=== PATIENT | female | born 1935 | race Hispanic/Latino ===

== ENCOUNTER 2016-08-15 17:55 | Inpatient (IN) | payer MEDICARE, MEDICAID ==
[~2016-08-15] VITALS: Ht 172.7 cm; Wt 90.7 kg
[2016-08-15] MEDS ORDERED: SENNA8.6 M2 PO (18:00)
[2016-08-15] MEDS ORDERED: LANTUS SOL100 UNIT/1 SUBQ ×2 (18:00)
[2016-08-15] MEDS ORDERED: AMLODIPINE BES2.5 MG ORAL (18:00)
[2016-08-15] MEDS ORDERED: SIMVASTATIN5 MG ORAL (18:00)
[2016-08-15] MEDS ORDERED: OMEPRAZOLE5 GM MC (18:00)
[2016-08-15 18:12] VITALS: BP 129/97
[2016-08-15] MEDS ORDERED: Morphine Sulfate 4mg/ml Inj IVP ONE (18:15)
--- NOTE | 2016-08-15 18:31 | Emergency Room Report ---
History of Present Illness General Chief Complaint: Multiple Trauma/Fall Source: Patient, EMS Present Illness HPI 81 YO F BIBEMS with allegedly ground level slip and fall "on tile" at home. C/o pain to lower right extremity. Unable to ambulate. Denies ankle/foot, hip, thigh, pelvis pain. Denies hitting head, other injury. EMS notes obvious deformity to right lower extremity, placed in air cast before transport. Allergies: Coded Allergies: No Known Allergies (Unverified , 06/20/13) Patient History Past Medical History: DM Past Surgical History: none Pertinent Family History: none Social History: Denies: alcohol use, drug use, smoking Now: No Reviewed Nursing Documentation: PMH: Agreed, PSxH: Agreed Nursing Documentation-PMH Hx Cardiac Problems: Yes - angiogram Hx Hypertension: Yes Hx COPD: Yes - PNA Hx Diabetes: Yes Hx Cancer: No Hx Gastrointestinal Problems: No Hx Neurological Problems: No Review of Systems All Other Systems: negative except mentioned in HPI Physical Exam Vital Signs Date Time Temp Pulse Resp B/P Pulse Ox O2 Delivery O2 Flow Rate FiO2 08/15/16 17:53 97.9 108 20 139/61 96 Room Air Sp02 EP Interpretation: reviewed, normal General Appearance: normal inspection, well appearing, no apparent distress, alert, GCS 15, non-toxic, obese Head: normocephalic, atraumatic Eyes: bilateral eye EOMI, bilateral eye PERRL ENT: normal ENT inspection, hearing grossly normal, normal voice Neck: normal inspection, full range of motion, supple, no bony tend Respiratory: normal inspection, lungs clear, normal breath sounds, no respiratory distress, no retraction, no wheezing Cardiovascular #1: regular rate, rhythm, no edema Gastrointestinal: normal inspection, normal bowel sounds, non tender, soft, no guarding, no hernia Genitourinary: no CVA tenderness Musculoskeletal: other - Right lower extremity: abrasion to lower mid tibia, obvious crepitus palpable and obvious deformity visualized. No open laceration. Able to move right ankle. No ttp to right knee, prox tib/fib or foot/ankle. Neurologic: normal inspection, alert, oriented x3, responsive, senior strategy analyst III-XII nml as tested, motor strength/tone normal, speech normal Psychiatric: normal inspection, judgement/insight normal, mood/affect normal Skin: normal inspection, normal color, no rash Medical Decision Making Diagnostic Impression: Primary Impression: Fall Qualified Codes: W19.XXXA - Unspecified fall, initial encounter Additional Impressions: Multiple injuries due to trauma Closed right tibial fracture Qualified Codes: S82.201A - Unspecified fracture of shaft of right tibia, initial encounter for closed fracture Closed right fibular fracture Qualified Codes: S82.831A - Other fracture of upper and lower end of right fibula, initial encounter for closed fracture ER Course 81 YO Fwith right tibia and right fibula closed fractures s/p attempted reduction and splinting in ED. VSS. Afebrile. Labs: Mild leuks. Mild Hyper K. Stable CKD CXR negative for acute PNA ECG Atrial Fib, no RVR Endorsed to Dr Gee at 833pm for med/surg admission EKG Diagnostic Results Rate: other - Atrial fib Rhythm: other ST Segments: no acute changes Rhythm Strip Diag. Results EP Interpretation: yes Rate: 91 Rhythm: no PVC's, no ectopy Chest X-Ray Diagnostic Results EP Interpretation: Yes Findings: no consolidation, no effusion, no pneumothorax, no acute cardiopulmonary disease Number of Views: 1 Other X-Ray Diagnostic Results Other X-Ray Diagnostic Results : X-Ray Ordered: Right tib fib EP Interpretation: Yes Findings: other - Right distal tibia fx, right distal fibula fx Number of Views: 2 Other Impression Right tib fib S/p reduction 2 views ED review Improved lineup of fx fragments s/p reduction Right ankle 3 views ED review no fx, dislocation or soft tissue swelling Reevaluation Time: 20:34 Last Vital Signs Date Time Temp Pulse Resp B/P Pulse Ox O2 Delivery O2 Flow Rate FiO2 08/15/16 18:12 98.3 102 34 129/97 97 Room Air Status: improved Disposition: ADMITTED INPATIENT Referrals: NON PHYSICIAN (PCP) EDIE CARRIZALES M.D. Aug 15, 2016 18:31
[2016-08-15 18:55] LABS: BASOPHILS % (AUTO) 0.9 % (0.0-2.0); EOSINOPHILS % (AUTO) 3.1 % (0.0-3.0); LYMPHOCYTES % (AUTO) 6.2 % (20.0-45.0); MEAN CORPUSCULAR HEMOGLOBIN 28.4 PG (27.0-31.0); MEAN CORPUSCULAR HGB CONC 30.6 G/DL (32.0-36.0); MEAN CORPUSCULAR VOLUME 93 FL (80-99); MONOCYTES % (AUTO) 7.5 % (1.0-10.0); NEUTROPHILS % (AUTO) 82.3 % (45.0-75.0); PLATELET COUNT 238 K/UL (150-450); RED BLOOD COUNT 4.63 M/UL (4.20-5.40); RED CELL DISTRIBUTION WIDTH 15.6 % (11.6-14.8); WHITE BLOOD COUNT 11.3 K/UL (4.8-10.8)
[2016-08-15 19:03] LABS: PROTHROMBIN TIME 10.3 SEC (9.30-11.50)
[2016-08-15 19:09] LABS: ALANINE AMINOTRANSFERASE 17 U/L (3-33); ALBUMIN/GLOBULIN RATIO 0.8 (1.0-2.7); ANION GAP 10 (5-15); ASPARTATE AMINO TRANSFERASE 19 U/L (5-40); CALCIUM 9.4 mg/dL (8.6-10.2); CARBON DIOXIDE 33 mEQ/L (20-30); CHLORIDE 100 mEQ/L (98-107); CREATININE 1.2 mg/dL (0.5-0.9); HEMOLYSIS 2; SODIUM 143 mEQ/L (135-145); TOTAL PROTEIN 7.2 g/dL (6.6-8.7)
[2016-08-15] MEDS ORDERED: Lidocaine 1% Plain 30 ml INJ ONE (19:15)
[2016-08-15 20:26] VITALS: BP 128/79
[2016-08-15 21:47] VITALS: BP 129/80
[2016-08-15] MEDS ORDERED: Morphine Sulfate 2mg/ml Inj IVP PRN (23:15)
[2016-08-15] MEDS ORDERED: Miralax 17gm pkt ORAL PRN (23:15)
[2016-08-15] MEDS ORDERED: LORazepam Inj 2mg/ml 1ml IV PRN (23:15)
[2016-08-15] MEDS ORDERED: Zolpidem 5mg tab ORAL PRN (23:15)
[2016-08-15] MEDS ORDERED: Mylanta II UD 30ml ORAL PRN (23:15)
--- NOTE | 2016-08-15 23:45 | History and Physical ---
History of Present Illness General Date patient seen: Aug 15, 2016 Reason for Hospitalization: Multiple Trauma/Fall Present Illness HPI 81 YO female with pmhx DM II BIBA after patient apparently suffered a ground level mechanical slip and fall "on tile" at home. Patient has a c/o pain to lower right extremities. Patient says she is unable to ambulate now as a result of the fall. Patient denies any loss of conciousness, denies shortness of breath or chest pain leading to or preceeding the event of her fall. Patient admits the floor looked a little slippery and she wasn't able to prevent a mechanical slip and fall while walking. No other complaint of fever or chills, no headache or seizure reported. Patient is being admitted for evaluation of her lower extremity pains and inability to ambulate. Allergies: Coded Allergies: No Known Allergies (Unverified , 06/20/13) Medication History Scheduled Celecoxib* (Celebrex*), 200 MG ORAL DAILY, (Reported) Docusate Sodium* (Docusate Sodium*), 100 MG ORAL THREE TIMES A DAY, (Reported) Enoxaparin* (Lovenox*), 30 MG SUBQ EVERY 12 HOURS, (Reported) Ertapenem Sodium* (INVanz*), 1 GM IVPB Q24H, (Reported) Hydrocodone/Acetaminophen 5-325* (Hydrocodone/Acetaminophen 5-325*), 1 TAB ORAL Q4H, (Reported) Metoprolol Tartrate* (Metoprolol Tartrate*), 37.5 MG ORAL EVERY 12 HOURS, ( Reported) Vancomycin Hcl/D5w (Vancomycin-D5w 1 G/250 Ml), 1 GM IVPB Q24H, (Reported) Vitamin A & D (Vitamin A & D Ointment), 1 APPLIC TOPIC Q12HR, (Reported) Scheduled PRN Acetaminophen (Acetaminophen), 325 MG PO Q6HR PRN for Mild Pain/Temp > 100.5, ( Reported) Al Hydroxide/mg Hydroxide (Mag-Al Plus Suspension), 30 ML PO Q6HR PRN for DYSPEPSIA, (Reported) Hydromorphone HCl (Hydromorphone HCl), 1 MG SUBQ Q3HR PRN for Moderate Pain ( Pain Scale 4-6), (Reported) Hydromorphone HCl (Hydromorphone HCl), 0.5 MG SUBQ Q4HR PRN for Mild Pain (Pain Scale 1-3), (Reported) Lorazepam* (Lorazepam*), 0.5 MG IV Q4H PRN for For Anxiety, (Reported) Ondansetron* (Zofran*), 4 MG IV Q6H PRN for Nausea & Vomiting, (Reported) Polyethylene Glycol 3350* (Miralax*), 17 GM ORAL HS PRN for Constipation, ( Reported) Zolpidem Tartrate* (Zolpidem Tartrate*), 5 MG ORAL BEDTIME PRN for Insomnia, ( Reported) Miscellaneous Medications Insulin Aspart (Novolog), 100 UNIT SQ, (Reported) Patient History Healthcare decision maker Resuscitation status Full Code Advanced Directive on File Past Medical/Surgical History Past Medical/Surgical History: (1) Leukocytosis (2) Altered mental status (3) Diabetes mellitus (4) Cellulitis (5) Multiple falls (6) recurrent hypoglycemia (7) Afib (8) UTI (urinary tract infection) Review of Systems Constitutional: Reports: weakness Musculoskeletal: Reports: back pain, joint pain, joint swelling, muscle pain, muscle stiffness Skin: Reports: lesions, rash Physical Exam General Appearance: no apparent distress Lines, tubes and drains: peripheral HEENT: normocephalic, atraumatic, anicteric, PERRL Neck: non-tender, normal alignment, supple Respiratory/Chest: chest wall non-tender, lungs clear, decreased breath sounds Cardiovascular/Chest: normal peripheral pulses, normal rate, regular rhythm, no JVD Abdomen: normal bowel sounds, non tender, soft, no organomegaly Genitourinary/Rectal: normal genital exam, normal rectal exam Extremities: calf tenderness, inflammation, slow capillary refill, trace edema , other - #1 Left Lower Leg Cellulitis with Dry, Scaly skin. Skin Exam: palled, rash Neurologic: product management internship II-XII grossly normal, no motor/sensory deficits Last 24 Hour Vital Signs Date Time Temp Pulse Resp B/P Pulse Ox O2 Delivery O2 Flow Rate FiO2 08/15/16 21:47 97.0 98 18 129/80 92 Nasal Cannula 2.0 08/15/16 20:43 98.3 97 20 128/79 99 Nasal Cannula 2.0 08/15/16 20:26 98.3 97 20 128/79 99 Nasal Cannula 2.0 08/15/16 19:04 98.3 08/15/16 18:12 98.3 102 34 129/97 97 Room Air 08/15/16 17:53 97.9 108 20 139/61 96 Room Air Laboratory Tests Test 08/15/16 18:36 White Blood Count 11.3 K/UL (4.8-10.8) H Red Blood Count 4.63 M/UL (4.20-5.40) Hemoglobin 13.2 G/DL (12.0-16.0) Hematocrit 43.0 % (37.0-47.0) Mean Corpuscular Volume 93 FL (80-99) Mean Corpuscular Hemoglobin 28.4 PG (27.0-31.0) Mean Corpuscular Hemoglobin Concent 30.6 G/DL (32.0-36.0) L Red Cell Distribution Width 15.6 % (11.6-14.8) H Platelet Count 238 K/UL (150-450) Mean Platelet Volume 8.0 FL (6.5-10.1) Neutrophils (%) (Auto) 82.3 % (45.0-75.0) H Lymphocytes (%) (Auto) 6.2 % (20.0-45.0) L Monocytes (%) (Auto) 7.5 % (1.0-10.0) Eosinophils (%) (Auto) 3.1 % (0.0-3.0) H Basophils (%) (Auto) 0.9 % (0.0-2.0) Prothrombin Time 10.3 SEC (9.30-11.50) Prothromb Time International Ratio 1.0 (0.9-1.1) Activated Partial Thromboplast Time 25 SEC (23-33) Sodium Level 143 mEQ/L (135-145) Potassium Level 5.0 mEQ/L (3.4-4.9) H Chloride Level 100 mEQ/L (98-107) Carbon Dioxide Level 33 mEQ/L (20-30) H Anion Gap 10 (5-15) Blood Urea Nitrogen 17 mg/dL (7-23) Creatinine 1.2 mg/dL (0.5-0.9) H Estimat Glomerular Filtration Rate mL/min (>60) Glucose Level 292 mg/dL (74-106) H Calcium Level 9.4 mg/dL (8.6-10.2) Total Bilirubin < 0.2 mg/dL (0.0-1.2) Aspartate Amino Transf (AST/SGOT) 19 U/L (5-40) Alanine Aminotransferase (ALT/SGPT) 17 U/L (3-33) Alkaline Phosphatase 111 U/L (35-104) H Total Protein 7.2 g/dL (6.6-8.7) Albumin 3.4 g/dL (3.5-5.2) L Globulin 3.8 g/dL Albumin/Globulin Ratio 0.8 (1.0-2.7) L Height (Feet): 5 Height (Inches): 8.00 Weight (Pounds): 200 Medications Current Medications Medications (Trade) Dose Ordered Sig/Andreas Route PRN Reason Start Time Stop Time Status Last Admin Dose Admin Acetaminophen (Tylenol) 650 mg Q4H PRN ORAL fever 08/15/16 23:15 09/14/16 23:14 Al Hydroxide/Mg Hydroxide (Mylanta II) 30 ml Q6H PRN ORAL dyspepsia 08/15/16 23:15 09/14/16 23:14 Amlodipine Besylate (Norvasc) 5 mg DAILY ORAL 08/16/16 09:00 09/15/16 08:59 Dextrose (Dextrose 50%) STAT PRN IV Hypoglycemia 08/15/16 23:15 09/14/16 23:14 Heparin Sodium (Porcine) (Heparin 5000 units/ml) 5,000 units EVERY 12 HOURS SUBQ 08/16/16 09:00 09/15/16 08:59 Insulin Aspart BEFORE MEALS AND HS SUBQ 08/16/16 06:30 09/15/16 06:29 Levofloxacin (Levaquin) 50 ml @ 50 mls/hr Q24H IVPB 08/17/16 00:00 08/24/16 00:00 Levofloxacin (Levaquin) 100 ml @ 100 mls/hr NOW ONCE IVPB 08/16/16 00:30 08/16/16 01:29 Lorazepam (Ativan 2mg/ml 1ml) 0.5 mg Q4H PRN IV For Anxiety 08/15/16 23:15 08/22/16 23:14 Morphine Sulfate (Morphine Sulfate) 2 mg Q4H PRN IVP For Pain 4-6 08/15/16 23:15 08/22/16 23:14 Ondansetron HCl (Zofran) 4 mg Q6H PRN IVP Nausea & Vomiting 08/15/16 23:15 09/14/16 23:14 Polyethylene Glycol (Miralax) 17 gm HSPRN PRN ORAL Constipation 08/15/16 23:15 09/14/16 23:14 Sodium Chloride 1,000 ml @ 50 mls/hr Q20H IV 08/16/16 00:00 09/15/16 00:00 Zolpidem Tartrate 5 mg 5 mg HSPRN PRN ORAL Insomnia 08/15/16 23:15 09/14/16 23:14 Assessment/Plan Problem List: (1) Multiple falls ICD Codes: R29.6 - Multiple falls SNOMED: 882047214 (2) Closed right fibular fracture ICD Codes: S82.401A - Unspecified fracture of shaft of right fibula, initial encounter for closed fracture SNOMED: 200524038 Qualifiers: Qualified Codes: S82.831A - Other fracture of upper and lower end of right fibula, initial encounter for closed fracture (3) Closed right tibial fracture ICD Codes: S82.201A - Unspecified fracture of shaft of right tibia, initial encounter for closed fracture SNOMED: 168801580 Qualifiers: Qualified Codes: S82.201A - Unspecified fracture of shaft of right tibia, initial encounter for closed fracture (4) recurrent hypoglycemia (5) Cellulitis (6) Diabetes mellitus Qualifiers: Qualified Codes: E11.8 - Type 2 diabetes mellitus with unspecified complications; Z79.4 - senior living (current) use of insulin Status: progressing Assessment/Plan Broad spectrum for Left Lower Leg Cellulitis and Left Heel pressure ulcer Orthopedic eval for apparent lower extremity fractures Pain management Tight BP and BG control CHRISTY CHESTER Aug 15, 2016 23:45
[2016-08-16] VITALS (7 sets, daily range): BP systolic 109–154; BP diastolic 56–78
[2016-08-16] MEDS: NovoLOG Insulin Flexpen SUBQ SCH ×4 (06:30→21:31)
[2016-08-16 07:58] LABS: ALANINE AMINOTRANSFERASE 14 U/L (3-33); ALBUMIN/GLOBULIN RATIO 0.9 (1.0-2.7); ANION GAP 9 (5-15); ASPARTATE AMINO TRANSFERASE 18 U/L (5-40); CALCIUM 9.1 mg/dL (8.6-10.2); CARBON DIOXIDE 33 mEQ/L (20-30); CHLORIDE 102 mEQ/L (98-107); CREATININE 1.3 mg/dL (0.5-0.9); HEMOLYSIS 4; POTASSIUM 5.2 mEQ/L (3.4-4.9); SODIUM 144 mEQ/L (135-145); TOTAL PROTEIN 6.6 g/dL (6.6-8.7)
[2016-08-16 08:43] LABS: BASOPHILS % (AUTO) 0.6 % (0.0-2.0); EOSINOPHILS % (AUTO) 3.3 % (0.0-3.0); LYMPHOCYTES % (AUTO) 9.7 % (20.0-45.0); MEAN CORPUSCULAR HEMOGLOBIN 27.5 PG (27.0-31.0); MEAN CORPUSCULAR HGB CONC 29.6 G/DL (32.0-36.0); MEAN CORPUSCULAR VOLUME 93 FL (80-99); MEAN PLATELET VOLUME 7.7 FL (6.5-10.1); MONOCYTES % (AUTO) 10.9 % (1.0-10.0); NEUTROPHILS % (AUTO) 75.4 % (45.0-75.0); PLATELET COUNT 249 K/UL (150-450); RED BLOOD COUNT 4.37 M/UL (4.20-5.40); RED CELL DISTRIBUTION WIDTH 14.9 % (11.6-14.8); WHITE BLOOD COUNT 12.3 K/UL (4.8-10.8)
--- NOTE | 2016-08-16 09:09 | Wound Care Consultation ---
Wound Assessment Wound Assessment #1: Wound Number: #1 Wound Present on Admission: Yes New Wound: No Status Change of Wound: No Wound Location Body Site Modif: left, lower Wound Location Body Site: leg Wound Type: other - Cellulitis Nitza Test: Does not Nitza Percent of Wound [place]/Red: 100 Wound Drainage Amount: None Wound Drainage Odor: None/Absent Tissue Surrounding Wound: Erythemic Wound General Appearance: Reddened - warm to touch. Dry, Scaly skin., Open to air Wound Assessment #2: Wound Number: #2 Wound Present on Admission: Yes New Wound: No Status Change of Wound: No Wound Location Body Site Modif: left Wound Location Body Site: heel Wound Type: pressure ulcer Nitza Test: Does not Nitza Pressure Ulcer Stage: deep tissue injury Wound Thickness: Full Thickness Wound Length: 4.0 Wound Width: 4.0 Wound Depth: utd Percent of Wound Purple/Maroon: 100 Wound Drainage Amount: None Wound Drainage Odor: None/Absent Tissue Surrounding Wound: Erythemic Wound General Appearance: Open to air - pt c/o of site being tender. Maroon color present to site. Wound Comment #1 Left Lower Leg Cellulitis with Dry, Scaly skin. #2 Left Heel Pressure Ulcer Deep Tissue Injury. Recommendation -APPLY LOW AIR LOSS OVERLAY FOR WOUND MANAGEMENT. -Turn and reposition. -Local wound care as ordered. -Apply A&D to left lower leg dry, scaly skin as ordered, leave open to air. -Offload heels and feet. -Apply heel protectors. -Avoid shear and friction. -Optimize Nutrition. -Keep clean and dry. -Assess and follow up with MD for any changes of condition. KEENAN DUNNE Aug 16, 2016 09:09
--- NOTE | 2016-08-16 09:10 | Pulmonology Progress Note ---
Assessment/Plan Assessment/Plan ASSESSMENT s/p fall closed R tibia fracture s/p attempted reduction of closed R tibial fracture in ED RLE pain AFib renal insufficiency mild hyperkalemia HTN DM COPD cellulitis LLE possible UTI PLAN OF CARE MS floor s/p reduction X ray after reduction - noted ortho eval appreciated per ortho-unstable fracture, need ORIF with IM nailing cardiac clearance after cardiac eval ECHO in am surgery tentatively planned for Thursday NPO after MN Thursday and hold Heparin evening of Thursday pain management AF stable, change CCB to BB for a better rate control BP management with BB, optimize as needed no anticoagulation 2 to high risk for further falls empiric abx, urine cx wound nurse eval noted Kayexalate x 1 ( low dose) monitor renal parameters, lytes, avoid nephrotoxic BS management with SS of insulin O2 HHN prn DVT prophylaxis bowel regimen case discussed and evaluated by supervising physician Subjective Allergies: Coded Allergies: No Known Allergies (Unverified , 06/20/13) Subjective c/o pain RLE splinted in ED awaiting for ortho eval mild leukocytosis, mild hyperkalemia no CP, no SOB, no dizziness reports slip and fall at home, no LOC, no blackout, BS stable Objective Last 24 Hour Vital Signs Date Time Temp Pulse Resp B/P Pulse Ox O2 Delivery O2 Flow Rate FiO2 08/16/16 08:31 98.8 111 20 127/69 95 Nasal Cannula 2.0 08/16/16 04:53 97.7 108 18 110/74 94 Nasal Cannula 2.0 94 08/16/16 00:02 97.0 96 20 125/75 93 Nasal Cannula 2.0 93 08/15/16 21:47 97.0 98 18 129/80 92 Nasal Cannula 2.0 08/15/16 20:43 98.3 97 20 128/79 99 Nasal Cannula 2.0 08/15/16 20:26 98.3 97 20 128/79 99 Nasal Cannula 2.0 08/15/16 19:04 98.3 08/15/16 18:12 98.3 102 34 129/97 97 Room Air 08/15/16 17:53 97.9 108 20 139/61 96 Room Air Intake and Output 08/15/16 08/16/16 19:00 07:00 Intake Total 350 ml Balance 350 ml Intake IV Total 350 ml # Voids 3 # Bowel Movements 2 General Appearance: no acute distress, other HEENT: normocephalic, atraumatic, anicteric Respiratory/Chest: lungs clear Cardiovascular: normal peripheral pulses, normal rate, regular rhythm, no JVD Abdomen: soft, non tender, non distended Extremities: other - RLE with splint, NV checks intact Skin: other - LLE with erythema, dry scaly skin Neurologic/Psychiatric: abnormal gait, alert, responsive Musculoskeletal: atrophy - BLE Laboratory Tests 08/15/16 18:36: White Blood Count 11.3H, Red Blood Count 4.63, Hemoglobin 13.2, Hematocrit 43.0 , Mean Corpuscular Volume 93, Mean Corpuscular Hemoglobin 28.4, Mean Corpuscular Hemoglobin Concent 30.6L, Red Cell Distribution Width 15.6H, Platelet Count 238, Mean Platelet Volume 8.0, Neutrophils (%) (Auto) 82.3H, Lymphocytes (%) (Auto) 6.2L, Monocytes (%) (Auto) 7.5, Eosinophils (%) (Auto) 3.1H, Basophils (%) (Auto) 0.9, Prothrombin Time 10.3, Prothromb Time International Ratio 1.0, Activated Partial Thromboplast Time 25, Sodium Level 143, Potassium Level 5.0H, Chloride Level 100, Carbon Dioxide Level 33H, Anion Gap 10, Blood Urea Nitrogen 17, Creatinine 1.2H, Estimat Glomerular Filtration Rate , Glucose Level 292H, Calcium Level 9.4, Total Bilirubin < 0.2, Aspartate Amino Transf (AST/SGOT) 19, Alanine Aminotransferase (ALT/SGPT) 17, Alkaline Phosphatase 111H, Total Protein 7.2, Albumin 3.4L, Globulin 3.8, Albumin/ Globulin Ratio 0.8L 08/16/16 05:15: White Blood Count 12.3H, Red Blood Count 4.37, Hemoglobin 12.0, Hematocrit 40.6 , Mean Corpuscular Volume 93, Mean Corpuscular Hemoglobin 27.5, Mean Corpuscular Hemoglobin Concent 29.6L, Red Cell Distribution Width 14.9H, Platelet Count 249, Mean Platelet Volume 7.7, Neutrophils (%) (Auto) 75.4H, Lymphocytes (%) (Auto) 9.7L, Monocytes (%) (Auto) 10.9H, Eosinophils (%) (Auto) 3.3H, Basophils (%) (Auto) 0.6, Sodium Level 144, Potassium Level 5.2H, Chloride Level 102, Carbon Dioxide Level 33H, Anion Gap 9, Blood Urea Nitrogen 16, Creatinine 1.3H, Estimat Glomerular Filtration Rate , Glucose Level 71#L, Calcium Level 9.1, Total Bilirubin 0.2, Aspartate Amino Transf (AST/SGOT) 18, Alanine Aminotransferase (ALT/SGPT) 14, Alkaline Phosphatase 96, Total Protein 6.6, Albumin 3.2L, Globulin 3.4, Albumin/Globulin Ratio 0.9L Current Medications Medications (Trade) Dose Ordered Sig/Andreas Route PRN Reason Start Time Stop Time Status Last Admin Dose Admin Acetaminophen (Tylenol) 650 mg Q4H PRN ORAL fever 08/15/16 23:15 09/14/16 23:14 Al Hydroxide/Mg Hydroxide (Mylanta II) 30 ml Q6H PRN ORAL dyspepsia 08/15/16 23:15 09/14/16 23:14 Amlodipine Besylate (Norvasc) 5 mg DAILY ORAL 08/16/16 09:00 09/15/16 08:59 Dextrose (Dextrose 50%) STAT PRN IV Hypoglycemia 08/15/16 23:15 09/14/16 23:14 Heparin Sodium (Porcine) (Heparin 5000 units/ml) 5,000 units EVERY 12 HOURS SUBQ 08/16/16 09:00 09/15/16 08:59 Insulin Aspart BEFORE MEALS AND HS SUBQ 08/16/16 06:30 09/15/16 06:29 Levofloxacin (Levaquin) 50 ml @ 50 mls/hr Q24H IVPB 08/17/16 00:00 08/24/16 00:00 Lorazepam (Ativan 2mg/ml 1ml) 0.5 mg Q4H PRN IV For Anxiety 08/15/16 23:15 08/22/16 23:14 Morphine Sulfate (Morphine Sulfate) 2 mg Q4H PRN IVP For Pain 4-6 08/15/16 23:15 08/22/16 23:14 Ondansetron HCl (Zofran) 4 mg Q6H PRN IVP Nausea & Vomiting 08/15/16 23:15 09/14/16 23:14 Polyethylene Glycol (Miralax) 17 gm HSPRN PRN ORAL Constipation 08/15/16 23:15 09/14/16 23:14 Sodium Chloride 1,000 ml @ 50 mls/hr Q20H IV 08/16/16 00:00 09/15/16 00:00 08/16/16 00:00 Vitamin A/Vitamin D (A & D Oint) 1 applic EVERY 12 HOURS TOPIC 08/16/16 09:00 09/15/16 08:59 UNV Zolpidem Tartrate (Ambien) 5 mg HSPRN PRN ORAL Insomnia 08/15/16 23:15 09/14/16 23:14 [facility]Debra NP Aug 16, 2016 09:10
[2016-08-16] MEDS ORDERED: Sodium Polystyrene Sulfonate 15gm Powder ORAL ONE (09:15)
--- NOTE | 2016-08-16 09:59 | Diagnostic Imaging Report ---
Indication: Status post reduction of the right leg Technique: XRAY LEG LOWER TIB/FIB 2V RIGHT Comparison: Examination from earlier the same day at 1844 hrs. Findings: There is now a cast obscures underlying osseous detail. There is redemonstration of mildly displaced tibial and distal fibular fractures. There is osteopenia. Impression: Interval placement of a cast. Redemonstration of mildly displaced tibial shaft and distal fibular fractures.
--- NOTE | 2016-08-16 10:00 | Diagnostic Imaging Report ---
Indication: Right leg pain Technique: XRAY LEG LOWER TIB/FIB 2V RIGHT Comparison: None Findings: There is an obliquely oriented fracture of the mid to distal tibial shaft. There is also a fracture of the distal fibula. Fractures are mildly displaced. There is osteopenia. Atherosclerotic changes are present. Degenerative changes of the patellofemoral compartment of the knee are seen. Impression: Acute fractures of the tibia and fibula.
--- NOTE | 2016-08-16 10:04 | Diagnostic Imaging Report ---
Indication: Right ankle pain Technique: XRAY ANKLE MIN 3VWS RIGHT Comparison: None Findings: Obliquely oriented mildly displaced fractures are noted of the mid to distal tibial shaft and distal fibula. There is osteopenia. Impression: Acute fractures of the tibia and fibula.
[2016-08-16] MEDS: Vitamin A&D Oint 2oz Tube TOPIC SCH ×2 (10:53→21:25)
[2016-08-16] MEDS: Heparin 5000 units/ml inj SUBQ SCH ×2 (10:54→21:12)
[2016-08-16] MEDS: DuoNeb 0.5-3(2.5)mg/3ml neb HHN SCH ×4 (12:30→23:11)
[2016-08-16 14:55] LABS: APPEARANCE,URINE SLIGHTLY CLOUDY; KETONES,URINE NEGATIVE (NEGATIVE); LEUKOCYTE ESTERASE ,URINE 3+ (NEGATIVE); NITRITE,URINE POSITIVE (NEGATIVE); PH,URINE 6 (4.5-8.0); PROTEIN,URINE 3+ (NEGATIVE); UROBILINOGEN,URINE 1 MG/DL (0.0-1.0)
[2016-08-16 15:06] LABS: BACTERIA,URINE FEW /HPF; SQUAMOUS EPITHELIAL CELL,UR FEW /LPF (NONE/OCC)
--- NOTE | 2016-08-16 16:52 | Pulmonology Progress Note ---
Subjective Allergies: Coded Allergies: No Known Allergies (Unverified , 06/20/13) Objective Last 24 Hour Vital Signs Date Time Temp Pulse Resp B/P Pulse Ox O2 Delivery O2 Flow Rate FiO2 08/16/16 16:26 98.0 109 20 135/71 97 Room Air 08/16/16 15:50 109 20 98 Nasal Cannula 08/16/16 15:42 110 20 Nasal Cannula 2.0 08/16/16 15:40 110 22 94 Nasal Cannula 2.0 08/16/16 12:13 98.2 107 20 134/78 95 Nasal Cannula 08/16/16 08:31 98.8 111 20 127/69 95 Nasal Cannula 2.0 08/16/16 04:53 97.7 108 18 110/74 94 Nasal Cannula 2.0 94 08/16/16 00:02 97.0 96 20 125/75 93 Nasal Cannula 2.0 93 08/15/16 21:47 97.0 98 18 129/80 92 Nasal Cannula 2.0 08/15/16 20:43 98.3 97 20 128/79 99 Nasal Cannula 2.0 08/15/16 20:26 98.3 97 20 128/79 99 Nasal Cannula 2.0 08/15/16 19:04 98.3 08/15/16 18:12 98.3 102 34 129/97 97 Room Air 08/15/16 17:53 97.9 108 20 139/61 96 Room Air Intake and Output 08/15/16 08/16/16 19:00 07:00 Intake Total 350 ml Balance 350 ml IV Total 350 ml # Voids 3 # Bowel Movements 2 Laboratory Tests 08/15/16 18:36: White Blood Count 11.3H, Red Blood Count 4.63, Hemoglobin 13.2, Hematocrit 43.0 , Mean Corpuscular Volume 93, Mean Corpuscular Hemoglobin 28.4, Mean Corpuscular Hemoglobin Concent 30.6L, Red Cell Distribution Width 15.6H, Platelet Count 238, Mean Platelet Volume 8.0, Neutrophils (%) (Auto) 82.3H, Lymphocytes (%) (Auto) 6.2L, Monocytes (%) (Auto) 7.5, Eosinophils (%) (Auto) 3.1H, Basophils (%) (Auto) 0.9, Prothrombin Time 10.3, Prothromb Time International Ratio 1.0, Activated Partial Thromboplast Time 25, Sodium Level 143, Potassium Level 5.0H, Chloride Level 100, Carbon Dioxide Level 33H, Anion Gap 10, Blood Urea Nitrogen 17, Creatinine 1.2H, Estimat Glomerular Filtration Rate , Glucose Level 292H, Calcium Level 9.4, Total Bilirubin < 0.2, Aspartate Amino Transf (AST/SGOT) 19, Alanine Aminotransferase (ALT/SGPT) 17, Alkaline Phosphatase 111H, Total Protein 7.2, Albumin 3.4L, Globulin 3.8, Albumin/ Globulin Ratio 0.8L 08/16/16 05:15: White Blood Count 12.3H, Red Blood Count 4.37, Hemoglobin 12.0, Hematocrit 40.6 , Mean Corpuscular Volume 93, Mean Corpuscular Hemoglobin 27.5, Mean Corpuscular Hemoglobin Concent 29.6L, Red Cell Distribution Width 14.9H, Platelet Count 249, Mean Platelet Volume 7.7, Neutrophils (%) (Auto) 75.4H, Lymphocytes (%) (Auto) 9.7L, Monocytes (%) (Auto) 10.9H, Eosinophils (%) (Auto) 3.3H, Basophils (%) (Auto) 0.6, Sodium Level 144, Potassium Level 5.2H, Chloride Level 102, Carbon Dioxide Level 33H, Anion Gap 9, Blood Urea Nitrogen 16, Creatinine 1.3H, Estimat Glomerular Filtration Rate , Glucose Level 71#L, Calcium Level 9.1, Total Bilirubin 0.2, Aspartate Amino Transf (AST/SGOT) 18, Alanine Aminotransferase (ALT/SGPT) 14, Alkaline Phosphatase 96, Total Protein 6.6, Albumin 3.2L, Globulin 3.4, Albumin/Globulin Ratio 0.9L 08/16/16 14:30: Urine Color Yellow, Urine Appearance Slightly cloudy, Urine pH 6, Urine Specific [place] 1.010, Urine Protein 3+H, Urine Glucose (UA) Negative, Urine Ketones Negative, Urine Occult Blood 3+H, Urine Nitrite PositiveH, Urine Bilirubin Negative, Urine Urobilinogen 1H, Urine Leukocyte Esterase 3+H, Urine RBC 5-10H, Urine WBC 10-15H, Urine Squamous Epithelial Cells Few, Urine Bacteria Few Current Medications Medications (Trade) Dose Ordered Sig/Andreas Route PRN Reason Start Time Stop Time Status Last Admin Dose Admin Acetaminophen (Tylenol) 650 mg Q4H PRN ORAL fever 08/15/16 23:15 09/14/16 23:14 Al Hydroxide/Mg Hydroxide (Mylanta II) 30 ml Q6H PRN ORAL dyspepsia 08/15/16 23:15 09/14/16 23:14 Albuterol/ Ipratropium (DuoNeb 0.5-3(2.5)mg/3ml) 3 ml Q4HRT HHN 08/16/16 12:30 08/21/16 12:29 Dextrose (Dextrose 50%) STAT PRN IV Hypoglycemia 08/15/16 23:15 09/14/16 23:14 Heparin Sodium (Porcine) (Heparin 5000 units/ml) 5,000 units EVERY 12 HOURS SUBQ 08/16/16 09:00 09/15/16 08:59 08/16/16 10:54 Insulin Aspart BEFORE MEALS AND HS SUBQ 08/16/16 06:30 09/15/16 06:29 Levofloxacin (Levaquin) 50 ml @ 50 mls/hr Q24H IVPB 08/17/16 00:00 08/24/16 00:00 Lorazepam (Ativan 2mg/ml 1ml) 0.5 mg Q4H PRN IV For Anxiety 08/15/16 23:15 08/22/16 23:14 Metoprolol Tartrate (Lopressor) 12.5 mg Q12HR ORAL 08/16/16 21:00 09/15/16 20:59 Morphine Sulfate (Morphine Sulfate) 2 mg Q4H PRN IVP For Pain 4-6 08/15/16 23:15 08/22/16 23:14 Ondansetron HCl (Zofran) 4 mg Q6H PRN IVP Nausea & Vomiting 08/15/16 23:15 09/14/16 23:14 Polyethylene Glycol (Miralax) 17 gm HSPRN PRN ORAL Constipation 08/15/16 23:15 09/14/16 23:14 Sodium Chloride 1,000 ml @ 50 mls/hr Q20H IV 08/16/16 00:00 09/15/16 00:00 08/16/16 00:00 Vitamin A/Vitamin D (A & D Oint) 1 applic EVERY 12 HOURS TOPIC 08/16/16 09:30 09/15/16 09:29 08/16/16 10:53 Zolpidem Tartrate (Ambien) 5 mg HSPRN PRN ORAL Insomnia 08/15/16 23:15 09/14/16 23:14 Vijay ([facility])Debra NP Aug 16, 2016 16:52
--- NOTE | 2016-08-16 17:26 | Consultation ---
Consult Note Consult Note Patient seen/evaluated. Right unstable Tib Fib fracture. Requires ORIF with IM nailing. Will await clearance from medicine/cardiology. 2d Echo. Plan on ORIF Thursday afternoon. NPO past midnight on Thursday. Thank you, MARLEEN DANIELSON Aug 16, 2016 17:26
[2016-08-16] MEDS ORDERED: ceFAZolin sod 1 GM in D5W 55 ML IV ONE (18:45)
[2016-08-16] MEDS: Metoprolol Tartrate 12.5mg TAB ORAL SCH (21:00)
[2016-08-17] VITALS (7 sets, daily range): BP systolic 107–145; BP diastolic 48–87
[2016-08-17] MEDS: DuoNeb 0.5-3(2.5)mg/3ml neb HHN SCH ×5 (03:28→20:34)
[2016-08-17] MEDS: NovoLOG Insulin Flexpen SUBQ SCH ×4 (06:29→21:00)
[2016-08-17 06:39] LABS: BASOPHILS % (AUTO) 0.5 % (0.0-2.0); EOSINOPHILS % (AUTO) 2.9 % (0.0-3.0); MEAN CORPUSCULAR HGB CONC 29.9 G/DL (32.0-36.0); MEAN CORPUSCULAR VOLUME 94 FL (80-99); MEAN PLATELET VOLUME 7.9 FL (6.5-10.1); MONOCYTES % (AUTO) 14.8 % (1.0-10.0); NEUTROPHILS % (AUTO) 66.7 % (45.0-75.0); PLATELET COUNT 185 K/UL (150-450); RED BLOOD COUNT 3.93 M/UL (4.20-5.40); RED CELL DISTRIBUTION WIDTH 15.1 % (11.6-14.8); WHITE BLOOD COUNT 8.8 K/UL (4.8-10.8)
[2016-08-17 06:51] LABS: ANION GAP 12 (5-15); CALCIUM 8.6 mg/dL (8.6-10.2); CARBON DIOXIDE 32 mEQ/L (20-30); CHLORIDE 100 mEQ/L (98-107); CREATININE 1.3 mg/dL (0.5-0.9); HEMOLYSIS 15; POTASSIUM 4.3 mEQ/L (3.4-4.9); SODIUM 144 mEQ/L (135-145)
[2016-08-17] MEDS: Vitamin A&D Oint 2oz Tube TOPIC SCH ×2 (08:16→21:00)
[2016-08-17] MEDS: Heparin 5000 units/ml inj SUBQ SCH ×2 (08:16→15:33)
[2016-08-17] MEDS: Metoprolol Tartrate 12.5mg TAB ORAL SCH (08:16)
--- NOTE | 2016-08-17 11:46 | Diagnostic Imaging Report ---
Indication: Chest pain Technique: XRAY CHEST 1 V Comparison: 06/18/16 Findings: Cardiac silhouette is prominent. Atherosclerotic changes are seen. There is poor inspiration with bronchovascular crowding. Degenerative changes of the spine are noted. There is osteopenia. Impression: Cardiomegaly. Poor inspiration with bronchovascular crowding and mild interstitial prominence. No obvious consolidation. Followup recommended as indicated.
--- NOTE | 2016-08-17 12:44 | Pulmonology Progress Note ---
Assessment/Plan Assessment/Plan ASSESSMENT s/p fall closed R tibia fracture s/p attempted reduction of closed R tibial fracture in ED RLE pain AFib renal insufficiency mild hyperkalemia HTN DM COPD cellulitis LLE possible UTI PLAN OF CARE MS floor s/p reduction X ray after reduction - noted ortho eval appreciated per ortho-unstable fracture, need ORIF with IM nailing cardiac clearance after cardiac eval preop ECHO today surgery y planned for Thursday 330 pm NPO after MN Thursday and hold Heparin evening of Thursday and morning Thursday pain management AF stable, rate controlled. changed CCB to BB for a better rate control BP management with BB, optimize as needed no anticoagulation 2 to high risk for further falls urine cx + GNR , change abx to Rocephin wound nurse eval noted s/p Kayexalate x 1 ( low dose), K stable monitor renal parameters, lytes, avoid nephrotoxic BS management with SS of insulin O2 HHN prn DVT prophylaxis bowel regimen case discussed and evaluated by supervising physician Subjective Allergies: Coded Allergies: No Known Allergies (Unverified , 06/20/13) Subjective leukocytosis resolved ortho eval done surgery planned for Thursday 330 pm awaiting for cardio clearance denies chest pain, SOB, Objective Last 24 Hour Vital Signs Date Time Temp Pulse Resp B/P Pulse Ox O2 Delivery O2 Flow Rate FiO2 08/17/16 11:20 93 18 97 Nasal Cannula 2.0 08/17/16 11:20 94 18 99 Nasal Cannula 3.0 08/17/16 08:16 101 138/51 08/17/16 08:00 97.7 100 18 145/87 Room Air 08/17/16 07:40 90 20 98 Nasal Cannula 3.0 08/17/16 07:40 90 20 98 Nasal Cannula 2.0 08/17/16 04:00 97.3 101 20 138/51 98 Nasal Cannula 3.0 08/17/16 03:33 102 20 100 Nasal Cannula 3.0 08/17/16 03:27 101 21 96 Nasal Cannula 2.0 08/17/16 00:00 97.9 100 20 112/56 96 Nasal Cannula 3.0 08/16/16 23:12 105 20 100 Nasal Cannula 3.0 08/16/16 22:59 100 22 93 Nasal Cannula 2.0 08/16/16 20:00 98.2 116 20 109/56 98 Nasal Cannula 2.0 08/16/16 19:31 108 20 100 Nasal Cannula 3.0 08/16/16 19:24 109 22 93 Nasal Cannula 2.0 08/16/16 16:26 98.0 109 20 135/71 97 Room Air 08/16/16 15:50 109 20 98 Nasal Cannula 08/16/16 15:42 110 20 Nasal Cannula 2.0 08/16/16 15:40 110 22 94 Nasal Cannula 2.0 Intake and Output 08/16/16 08/17/16 19:00 07:00 Intake Total 800 ml 400 ml Output Total 400 ml 650 ml Balance 400 ml -250 ml Intake Oral 600 ml IV Total 200 ml 400 ml Output Urine Total 400 ml 650 ml # Voids 2 Objective General Appearance: no acute distress, other HEENT: normocephalic, atraumatic, anicteric Respiratory/Chest: lungs clear Cardiovascular: normal peripheral pulses, normal rate, regular rhythm, no JVD Abdomen: soft, non tender, non distended Extremities: other - RLE with splint, NV checks intact Skin: other - LLE with erythema, dry scaly skin Neurologic/Psychiatric: abnormal gait, alert, responsive Musculoskeletal: atrophy - BLE Microbiology Date/Time Source Procedure Growth Status 08/16/16 14:30 Urine,Clean Catch Urine Culture - Preliminary Gram Negative Bacillus 1 Resulted Laboratory Tests 08/16/16 14:30: Urine Color Yellow, Urine Appearance Slightly cloudy, Urine pH 6, Urine Specific [place] 1.010, Urine Protein 3+H, Urine Glucose (UA) Negative, Urine Ketones Negative, Urine Occult Blood 3+H, Urine Nitrite PositiveH, Urine Bilirubin Negative, Urine Urobilinogen 1H, Urine Leukocyte Esterase 3+H, Urine RBC 5-10H, Urine WBC 10-15H, Urine Squamous Epithelial Cells Few, Urine Bacteria Few 08/17/16 05:15: White Blood Count 8.8, Red Blood Count 3.93L, Hemoglobin 11.0L, Hematocrit 36.8L , Mean Corpuscular Volume 94, Mean Corpuscular Hemoglobin 28.0, Mean Corpuscular Hemoglobin Concent 29.9L, Red Cell Distribution Width 15.1H, Platelet Count 185, Mean Platelet Volume 7.9, Neutrophils (%) (Auto) 66.7, Lymphocytes (%) (Auto) 15.0L, Monocytes (%) (Auto) 14.8H, Eosinophils (%) (Auto ) 2.9, Basophils (%) (Auto) 0.5, Sodium Level 144, Potassium Level 4.3, Chloride Level 100, Carbon Dioxide Level 32H, Anion Gap 12, Blood Urea Nitrogen 17, Creatinine 1.3H, Estimat Glomerular Filtration Rate , Glucose Level 113H, Calcium Level 8.6 Current Medications Medications (Trade) Dose Ordered Sig/Andreas Route PRN Reason Start Time Stop Time Status Last Admin Dose Admin Acetaminophen (Tylenol) 650 mg Q4H PRN ORAL fever 08/15/16 23:15 09/14/16 23:14 Al Hydroxide/Mg Hydroxide (Mylanta II) 30 ml Q6H PRN ORAL dyspepsia 08/15/16 23:15 09/14/16 23:14 Albuterol/ Ipratropium (DuoNeb 0.5-3(2.5)mg/3ml) 3 ml Q4HRT HHN 08/16/16 12:30 08/21/16 12:29 08/17/16 11:28 Dextrose (Dextrose 50%) STAT PRN IV Hypoglycemia 08/15/16 23:15 09/14/16 23:14 Heparin Sodium (Porcine) (Heparin 5000 units/ml) 5,000 units EVERY 12 HOURS SUBQ 08/16/16 09:00 09/15/16 08:59 08/16/16 21:12 Insulin Aspart BEFORE MEALS AND HS SUBQ 08/16/16 06:30 09/15/16 06:29 08/17/16 11:43 Levofloxacin (Levaquin) 50 ml @ 50 mls/hr Q24H IVPB 08/17/16 00:00 08/24/16 00:00 08/16/16 23:47 Lorazepam (Ativan 2mg/ml 1ml) 0.5 mg Q4H PRN IV For Anxiety 08/15/16 23:15 08/22/16 23:14 Metoprolol Tartrate (Lopressor) 12.5 mg Q12HR ORAL 08/16/16 21:00 09/15/16 20:59 08/17/16 08:16 Morphine Sulfate (Morphine Sulfate) 2 mg Q4H PRN IVP For Pain 4-6 08/15/16 23:15 08/22/16 23:14 Ondansetron HCl (Zofran) 4 mg Q6H PRN IVP Nausea & Vomiting 08/15/16 23:15 09/14/16 23:14 Polyethylene Glycol (Miralax) 17 gm HSPRN PRN ORAL Constipation 08/15/16 23:15 09/14/16 23:14 Sodium Chloride 1,000 ml @ 50 mls/hr Q20H IV 08/16/16 00:00 09/15/16 00:00 08/16/16 21:09 Vitamin A/Vitamin D (A & D Oint) 1 applic EVERY 12 HOURS TOPIC 08/16/16 09:30 09/15/16 09:29 08/17/16 08:16 Zolpidem Tartrate (Ambien) 5 mg HSPRN PRN ORAL Insomnia 08/15/16 23:15 09/14/16 23:14 Vijay ([facility])Debra NP Aug 17, 2016 12:44
[2016-08-17] MEDS: cefTRIAXone 1 GM in D5W 55 ML IVPB SCH (14:02)
--- NOTE | 2016-08-17 17:10 | Consultation ---
Consult Note Consult Note Cardiology for Dr. Freeman Full consult dictated #[id number] Pt has hx of htn, type II DM, and suffered a nonsyncopal fall, sustaining fracture to R tibia and fibula. She is in AF w controlled v rates on low dose metoprolol- ? duration. She has no arrhythmia sx and is not aware of a previous dx of arrhythmia. She has no sx , ekg changes to suggest acute cor syndrome, and has nl lv function by echo.. She has severe pulm hypertension but does not currently appear in chf. rec: she is at acceptable cardiovascular risk for the planned ortho surgery. Risk is increased by her comorbidities of AF, DM, HTN. REcommend continuing b autumn autumn op. Avoid aggressive iv fluids, due to risk for chf. Will check tfts - r/o thyroid disease contributing to AF. Over the skilled nursing, she will need anticoagulation for AF, given CHADS score of 3 (age, htn, dm) Dr Freeman to follow. REN GUERRERO Aug 17, 2016 17:10
[2016-08-17] MEDS: Metoprolol 25mg tab ORAL SCH (21:00)
[2016-08-18] VITALS (11 sets, daily range): BP systolic 117–141; BP diastolic 60–92
[2016-08-18] MEDS: DuoNeb 0.5-3(2.5)mg/3ml neb HHN SCH ×6 (03:11→23:00)
[2016-08-18] MEDS: NovoLOG Insulin Flexpen SUBQ SCH ×4 (05:50→22:06)
[2016-08-18 07:03] LABS: ANION GAP 13 (5-15); CALCIUM 8.8 mg/dL (8.6-10.2); CARBON DIOXIDE 32 mEQ/L (20-30); CHLORIDE 98 mEQ/L (98-107); CREATININE 1.1 mg/dL (0.5-0.9); HEMOLYSIS 7; POTASSIUM 4.2 mEQ/L (3.4-4.9); SODIUM 143 mEQ/L (135-145)
--- NOTE | 2016-08-18 07:07 | Consultation ---
DATE OF CONSULTATION: CARDIOLOGY CONSULTATION CONSULTING PHYSICIAN: ATTENDING PHYSICIAN: REFERRING PHYSICIAN: REASON FOR CONSULT: Preoperative cardiac clearance. HISTORY OF PRESENT ILLNESS: Mrs. Gan is an 81-year-old woman with a history of hypertension and type 2 diabetes, who suffered a nonsyncopal fall resulting in right tibia and fibula fracture. She is being scheduled for surgery. Cardiac evaluation was requested. She denies any history of chest pain, palpitations, shortness of breath, dizziness, or syncope. She has no history of prior myocardial infarction or CVA. She was noted to be in atrial fibrillation on admission, but is not aware of any history of arrhythmia. An echo has also been performed, which was a technically difficult study due to poor acoustic windows, but is reported to show an EF of 60 to 65%, mild left ventricular hypertrophy, left ventricular diastolic function not assessed due to atrial fibrillation. Doppler showed trace mitral regurgitation, moderate tricuspid regurgitation and severe pulmonary hypertension. Peak RV systolic pressure of 51. MEDICATIONS: Ceftriaxone 1 g IV q.24 hours, metoprolol 12.5 mg p.o. q.12 hours, DuoNeb nebulizer q.4 hours p.r.n., subcutaneous heparin 5000 units twice daily, insulin sliding scale, Tylenol p.r.n., Ambien p.r.n., morphine p.r.n., Ativan p.r.n. ALLERGIES: No known drug allergies. PAST MEDICAL HISTORY: As noted above. PAST SURGICAL HISTORY: Status post appendectomy approximately age 13, status post hysterectomy approximately age 38. SOCIAL HISTORY: The patient is retired and lives with her son. She is a nonsmoker. Does not drink alcohol. PHYSICAL EXAMINATION: VITAL SIGNS: Blood pressure is 138/80, pulse 91, irregularly irregular. Respirations 18. Afebrile. HEENT: Normocephalic and atraumatic. Pupils are equal, round and reactive to light. Sclerae anicteric. Oral mucosae are moist. NECK: Supple. There is no jugular venous distention. No carotid bruits. LUNGS: Clear anteriorly bilaterally. HEART: Irregularly irregular, S1, S2, with no murmur or S3. ABDOMEN: Soft, nontender. No palpable mass. EXTREMITIES: There is an Aircast on the right leg. Left leg with [id number] erythema. No edema. Distal left pulse intact. LABORATORY AND DIAGNOSTIC DATA: Hemoglobin 11, white blood count 8800, platelets 185,000. Sodium 144, potassium 4.3, chloride 100, bicarbonate 32, BUN 17, creatinine 1.3 and glucose 113. EKG shows atrial fibrillation with a ventricular rate of 91 beats per minute, axis +[address]-segment changes. Nonspecific T-wave changes. Chest x-ray shows poor inspiratory effort. No infiltrates, effusions or edema. ASSESSMENT AND RECOMMENDATIONS: Mrs. Gan is an 81-year-old woman with a history of hypertension and type 2 diabetes, who suffered a nonsyncopal fall and sustained a fracture of the right tibia and fibula. She is being scheduled for surgery. She is noted to have atrial fibrillation. It is not clear if this is a new diagnosis. Her ventricular rates appear fairly well controlled with 12.5 mg of metoprolol. I would favor increasing the dose for better rate control as well as blood pressure control. She will eventually need anticoagulation given her elevated CHADS score of 3 (age, diabetes and hypertension). She is at acceptable risk from a cardiovascular standpoint for the planned surgery. Would avoid aggressive intravenous fluids given her pulmonary hypertension and risk for diastolic or right-sided heart failure. Would continue beta-blockers perioperatively. Dr. Freeman will continue to follow Mrs. Gan starting August 18. Thank you for allowing us to participate in her care. Elizabeth Greco M.D. DR: ERCI JOB#: [id number] CC:
[2016-08-18 07:10] LABS: BASOPHILS % (AUTO) 0.7 % (0.0-2.0); EOSINOPHILS % (AUTO) 2.8 % (0.0-3.0); LYMPHOCYTES % (AUTO) 12.4 % (20.0-45.0); MEAN CORPUSCULAR HEMOGLOBIN 27.9 PG (27.0-31.0); MEAN CORPUSCULAR HGB CONC 29.6 G/DL (32.0-36.0); MEAN CORPUSCULAR VOLUME 94 FL (80-99); MEAN PLATELET VOLUME 7.5 FL (6.5-10.1); MONOCYTES % (AUTO) 10.4 % (1.0-10.0); NEUTROPHILS % (AUTO) 73.8 % (45.0-75.0); PLATELET COUNT 212 K/UL (150-450); RED BLOOD COUNT 4.29 M/UL (4.20-5.40); WHITE BLOOD COUNT 10.7 K/UL (4.8-10.8)
[2016-08-18 07:50] LABS: THYROID STIMULATING HORMONE 0.824 uIU/mL (0.300-4.500)
[2016-08-18] MEDS: Metoprolol 25mg tab ORAL SCH ×2 (09:00→22:01)
[2016-08-18] MEDS: Heparin 5000 units/ml inj SUBQ SCH (09:00)
[2016-08-18] MEDS: Vitamin A&D Oint 2oz Tube TOPIC SCH ×2 (10:21→22:01)
[2016-08-18] MEDS: cefTRIAXone 1 GM in D5W 55 ML IVPB SCH (12:46)
--- NOTE | 2016-08-18 15:04 | Anethesia Preoperative Eval ---
Anesthesia Pre-op PMH/ROS General Date of Evaluation: Aug 18, 2016 Time of Evaluation: 15:00 Anesthesiologist: Rosa ASA Score: ASA 3 Mallampati Score Class I : Soft palate, uvula, fauces, pillars visible Class II: Soft palate, uvula, fauces visible Class III: Soft palate, base of uvula visible Class IV: Only hard plate visible Mallampati Classification: Class II Surgeon: Hieu Diagnosis: Right Tib-Fib fracture Surgical Procedure: ORIF Right Tibia Allergies: Coded Allergies: No Known Allergies (Unverified , 06/20/13) Medications: see eMAR Past Medical History Cardiovascular: Reports: HTN, arrhythmia - AFIB, other - Pulmonary HTN, Denies: CAD, MN, valve dz Pulmonary: Reports: COPD, Denies: NEO, asthma, other Gastrointestinal/Genitourinary: Denies: CRI, ESRD, GERD, other Neurologic/Psychiatric: Denies: CVA, TIA, dementia, depression/anxiety, other Endocrine: Reports: DM HEENT: Denies: GULKANA (L), GULKANA (R), cataract (L), cataract (R), glaucoma, other Hematology/Immune: Denies: DVT, anemia, bleeding disorder, other Musculoskeletal/Integumentary: Denies: DDD, DJD, OA, RA, edema, other PMH Narrative: HTN, AFIB, Pulmonary HTN, COPD, DM PSxH Narrative: Hysterectomy Anesthesia Pre-op Phys. Exam Physician Exam Last Vital Signs Date Time Temp Pulse Resp B/P Pulse Ox O2 Delivery O2 Flow Rate FiO2 08/18/16 12:50 98.1 83 19 118/92 96 Nasal Cannula 2.0 08/16/16 04:53 94 Constitutional: NAD Neurologic: CN 2-12 intact Cardiovascular: RRR, no M/R/G Respiratory: CTA Gastrointestinal: S/NT/ND Airway Exam Mallampati Score: Class II MO: full ROM: full Anesthesia Pre-op A/P Labs Hematology Test 08/18/16 06:00 White Blood Count 10.7 K/UL (4.8-10.8) Red Blood Count 4.29 M/UL (4.20-5.40) Hemoglobin 12.0 G/DL (12.0-16.0) Hematocrit 40.5 % (37.0-47.0) Mean Corpuscular Volume 94 FL (80-99) Mean Corpuscular Hemoglobin 27.9 PG (27.0-31.0) Mean Corpuscular Hemoglobin Concent 29.6 G/DL (32.0-36.0) L Red Cell Distribution Width 15.0 % (11.6-14.8) H Platelet Count 212 K/UL (150-450) Mean Platelet Volume 7.5 FL (6.5-10.1) Neutrophils (%) (Auto) 73.8 % (45.0-75.0) Lymphocytes (%) (Auto) 12.4 % (20.0-45.0) L Monocytes (%) (Auto) 10.4 % (1.0-10.0) H Eosinophils (%) (Auto) 2.8 % (0.0-3.0) Basophils (%) (Auto) 0.7 % (0.0-2.0) Chemistry Test 08/18/16 06:00 Sodium Level 143 mEQ/L (135-145) Potassium Level 4.2 mEQ/L (3.4-4.9) Chloride Level 98 mEQ/L (98-107) Carbon Dioxide Level 32 mEQ/L (20-30) H Anion Gap 13 (5-15) Blood Urea Nitrogen 16 mg/dL (7-23) Creatinine 1.1 mg/dL (0.5-0.9) H Estimat Glomerular Filtration Rate mL/min (>60) Glucose Level 136 mg/dL (74-106) H Calcium Level 8.8 mg/dL (8.6-10.2) Thyroid Stimulating Hormone (TSH) 0.824 uIU/mL (0.300-4.500) Free Thyroxine 1.21 ng/dL (0.86-1.85) Studies Pre-op Studies: EKG - Afib, echo - EF 55-60% Risk Assessment & Plan Assessment: Right Tib-Fib fracture Plan: GA, LMA Status Change Before Surgery: No Pre-Antibiotics Drug: Ancef Given Within 1 Hr of Incision: Yes Time Given: 17:15 LUKE DAVIS M.D. Aug 18, 2016 15:04
--- NOTE | 2016-08-18 15:40 | Pre-Procedure Note/Attestation ---
Pre-Procedure Note/Attestation Complete Prior to Procedure Planned Procedure: right Procedure Narrative: rt tibial nailing, possible rt fibular ORIF Indications for Procedure Pre-Operative Diagnosis: Rt tibial and fibular fracture Attestation I attest that I discussed the nature of the procedure; its benefits; risks and complications; and alternatives (and the risks and benefits of such alternatives ), prior to the procedure, with the patient (or the patient's legal industrial relations representative). I attest that, if there was a reasonable possibility of needing a blood transfusion, the patient (or the patient's legal industrial relations representative) was given the [facility] standardized written summary, pursuant to the Michael Leonides Blood Safety Act ([place] Health and Safety Code # 1645, as amended). I attest that I re-evaluated the patient just prior to the surgery and that there has been no change in the patient's H&P, except as documented below: NONE MARLEEN DANIELSON Aug 18, 2016 15:40
[2016-08-18] MEDS ORDERED: Norco 5mg/325mg tab ORAL PRN (17:00)
[2016-08-18] MEDS ORDERED: Hydromorphone 0.5mg/0.5ml inj SUBQ PRN (17:00)
[2016-08-18] MEDS ORDERED: HYDROmorphone 1mg/ml Carpuject SUBQ PRN (17:00)
[2016-08-18] MEDS ORDERED: Propofol 10mg/ml 20ml IV ONE (17:05)
--- NOTE | 2016-08-18 17:08 | Immediate Post-Op Evaluation ---
Immediate Post-Op Evalulation Immediate Post-Op Evalulation Procedure: ORIF Right tib Date of Evaluation: Aug 18, 2016 Time of Evaluation: 19:15 IV Fluids: 300 Estimated Blood Loss: 50 Urinary Output: 100 Blood Pressure Systolic: 127 Blood Pressure Diastolic: 77 Pulse Rate: 115 Respiratory Rate: 16 O2 Sat by Pulse Oximetry: 99 Temperature (Fahrenheit): 97.5 Pain Score (1-10): 2 Nausea: No Vomiting: No Complications No complication Patient Status: awake, patent, none Hydration Status: adequate Drug: Ancef Given Within 1 Hr of Incision: Yes Time Given: 17:15 LUKE DAVIS M.D. Aug 18, 2016 17:08
[2016-08-18] MEDS ORDERED: Bacitracin 50000 Units Vial IRRIG ONE (18:00)
[2016-08-18] MEDS ORDERED: Hydrogen Peroxide 120ml Bottle TOPIC ONE (18:30)
--- NOTE | 2016-08-18 18:36 | Cardiology Report ---
APPROVED REPORT EXAM: Two-dimensional and M-mode echocardiogram with Doppler and color Doppler. INDICATION Pre-Op M-Mode DIMENSIONS IVSd0.7 (0.7-1.1cm)Left Atrium (MM)4.7 (1.6-4.0cm) LVDd5.3 (3.5-5.6cm)Aortic Root2.8 (2.0-3.7cm) PWd1.2 (0.7-1.1cm)Aortic Cusp Exc.1.8 (1.5-2.0cm) LVDs4.2 (2.5-4.0cm) PWs1.2 cm Technically difficult study due to poor acoustic windows. The patient is in atrial fibrillation. Normal left ventricular chamber size, systolic function and wall motion. Left ventricular ejection fraction estimated to be 60-65%. Mild left ventricular hypertrophy. Anterior Echo-free space, may be due to pericardial fat or effusion. Right cardiac chamber sizes are within normal limits. Moderate left atrial enlargement by 2D. Mild focal aortic valve sclerosis with adequate cusp excursion Moderatly thickened mitral valve leaflets with normal excursion. Moderate mitral annulus and aortic root calcification. Pulmonic valve not well visualized. Normal tricuspid valve structure. IVC normal in size with minimal physiologic collapse. RA pressure of 10mmHg. A color flow and spectral Doppler study was performed and revealed: No aortic regurgitation. Trace mitral regurgitation. Left ventricular diastolic dysfunction grade 3. Moderate tricuspid regurgitation. Tricuspid systolic velocities suggests peak right ventricular systolic pressure of 51 mmHg Consistent with severe pulmonary hypertension.
--- NOTE | 2016-08-18 18:47 | Brief Operative Note ---
Immediate Post Operative Note Operative Note Chief Complaint: rt leg pain Pre-op Diagnosis: rt tibial fracture and fibular fracture Procedure: rt tibial nailing Post-op Diagnosis: same as pre-op Findings: consistent w/pre-op dx studies Surgeon: md Hieu Nurse Infection Control: dung chow Anesthesiologist: md nava Anesthesia: general Specimen: none Complications: none Condition: stable Estimated Blood Loss: minimal Drains: none Implant(s) used?: Yes - ailyn IM nail and screws CARMINA CHOW Aug 18, 2016 18:47
--- NOTE | 2016-08-18 19:09 | Cardiology Report ---
APPROVED REPORT EKG Measurement Heart [id number] Atrial fibrillation Abnormal ECG
[2016-08-18] MEDS ORDERED: Metoprolol 5mg/5ml Inj ONE (19:26)
[2016-08-18] MEDS ORDERED: Hydromorphone 0.5mg/0.5ml inj IVP PRN (20:00)
[2016-08-18] MEDS ORDERED: Metoprolol 5mg/5ml Inj IVP SCH (20:00)
[2016-08-18] MEDS ORDERED: LORazepam Inj 2mg/ml 1ml IV ONE (20:10)
[2016-08-18] MEDS ORDERED: Ketorolac 30mg Inj IV ONE (20:10)
[2016-08-18] MEDS: Docusate 100mg cap ORAL SCH (22:01)
[2016-08-18] MEDS: D5 1/2NS 1,000 ML IV SCH (22:02)
[2016-08-18] MEDS ORDERED: Ertapenem 1 GM in NS 110 ML IVPB ONE (23:30)
[2016-08-18] MEDS: ceFAZolin sod 1 GM in D5W 55 ML IV SCH (23:41)
--- NOTE | 2016-08-18 23:47 | Pulmonology Progress Note ---
Assessment/Plan Problems: (1) Multiple falls (2) Closed right fibular fracture (3) Closed right tibial fracture (4) recurrent hypoglycemia (5) Cellulitis (6) Diabetes mellitus Assessment/Plan tolerated surgery cardiology cleared sliding scale pt/ot when ok with surgery dc planning soon. Subjective Allergies: Coded Allergies: No Known Allergies (Unverified , 06/20/13) Objective Last 24 Hour Vital Signs Date Time Temp Pulse Resp B/P Pulse Ox O2 Delivery O2 Flow Rate FiO2 08/18/16 23:36 90 16 95 Nasal Cannula 2.0 28 08/18/16 23:36 94 20 96 Nasal Cannula 3.0 32 08/18/16 22:01 113 123/51 08/18/16 20:06 97.0 103 32 124/60 95 Nasal Cannula 3.0 08/18/16 20:00 102 32 117/69 95 Nasal Cannula 3.0 08/18/16 19:45 104 15 121/74 95 Nasal Cannula 3.0 08/18/16 19:40 96 20 97 Nasal Cannula 3.0 32 08/18/16 19:30 115 15 130/62 95 Simple Mask 8.0 08/18/16 19:30 94 16 94 Nasal Cannula 2.0 28 08/18/16 19:25 122 153/84 08/18/16 19:15 118 15 141/80 97 Simple Mask 8.0 08/18/16 19:12 115 16 99 08/18/16 19:10 112 21 137/89 97 Simple Mask 8.0 08/18/16 19:05 98.7 118 35 127/77 100 Simple Mask 8.0 08/18/16 16:00 97.8 60 19 134/70 100 Nasal Cannula 2.0 08/18/16 15:22 108 20 100 Nasal Cannula 3.0 08/18/16 15:12 100 20 Nasal Cannula 2.0 08/18/16 12:50 98.1 83 19 118/92 96 Nasal Cannula 2.0 08/18/16 11:32 110 18 100 Nasal Cannula 3.0 08/18/16 11:20 103 20 Nasal Cannula 2.0 08/18/16 08:45 98.2 100 19 119/75 94 Room Air 08/18/16 07:53 112 18 100 Nasal Cannula 3.0 08/18/16 07:48 109 20 96 Nasal Cannula 2.0 08/18/16 04:00 97.2 104 24 117/68 95 Nasal Cannula 2.0 08/18/16 03:19 96 18 100 Nasal Cannula 3.0 08/18/16 03:11 94 22 95 Nasal Cannula 2.0 08/17/16 23:50 97.7 112 24 126/67 97 Nasal Cannula 2.0 Intake and Output 08/17/16 08/18/16 19:00 07:00 Intake Total 810 ml 600 ml Output Total 350 ml 850 ml Balance 460 ml -250 ml Intake Oral 300 ml IV Total 510 ml 600 ml Output Urine Total 350 ml 850 ml # Bowel Movements 1 Microbiology Date/Time Source Procedure Growth Status 08/16/16 14:30 Urine,Clean Catch Urine Culture - Final Escherichia Coli - Esbl Complete Laboratory Tests 08/18/16 06:00: White Blood Count 10.7, Red Blood Count 4.29, Hemoglobin 12.0, Hematocrit 40.5, Mean Corpuscular Volume 94, Mean Corpuscular Hemoglobin 27.9, Mean Corpuscular Hemoglobin Concent 29.6L, Red Cell Distribution Width 15.0H, Platelet Count 212 , Mean Platelet Volume 7.5, Neutrophils (%) (Auto) 73.8, Lymphocytes (%) (Auto) 12.4L, Monocytes (%) (Auto) 10.4H, Eosinophils (%) (Auto) 2.8, Basophils (%) ( Auto) 0.7, Sodium Level 143, Potassium Level 4.2, Chloride Level 98, Carbon Dioxide Level 32H, Anion Gap 13, Blood Urea Nitrogen 16, Creatinine 1.1H, Estimat Glomerular Filtration Rate , Glucose Level 136H, Calcium Level 8.8, Thyroid Stimulating Hormone (TSH) 0.824, Free Thyroxine 1.21 Current Medications Medications (Trade) Dose Ordered Sig/Andreas Route PRN Reason Start Time Stop Time Status Last Admin Dose Admin Acetaminophen 650 mg 650 mg Q6H PRN ORAL Mild Pain/Temp > 100.5 08/18/16 17:00 09/17/16 16:59 Acetaminophen/ Hydrocodone Bitart ([place] 5/325) 1 tab Q4H PRN ORAL MODERATE PAIN 08/18/16 17:00 08/25/16 16:59 Al Hydroxide/Mg Hydroxide (Mylanta II) 30 ml Q6H PRN ORAL dyspepsia 08/15/16 23:15 09/14/16 23:14 Albuterol/ Ipratropium (DuoNeb 0.5-3(2.5)mg/3ml) 3 ml Q4HRT HHN 08/16/16 12:30 08/21/16 12:29 08/18/16 23:00 Cefazolin Sodium/ Dextrose (Ancef/D5W) 55 ml @ 110 mls/hr EVERY 8 HOURS IV 08/18/16 23:00 08/19/16 14:29 08/18/16 23:41 Celecoxib (CeleBREX) 200 mg DAILY ORAL 08/19/16 09:00 09/18/16 08:59 Dextrose (Dextrose 50%) STAT PRN IV Hypoglycemia 08/15/16 23:15 09/14/16 23:14 Dextrose/Sodium Chloride (D5 0.45% NS) 1,000 ml @ 75 mls/hr Q13H IV 08/18/16 23:00 09/17/16 22:59 08/18/16 22:02 Docusate Sodium (Colace) 100 mg THREE TIMES A DAY ORAL 08/18/16 22:00 09/17/16 21:59 08/18/16 22:01 Enoxaparin Sodium 30 mg 30 mg EVERY 12 HOURS SUBQ 08/19/16 09:00 09/02/16 08:59 Ertapenem/Sodium Chloride (INVanz/Sodium Chloride) 110 ml @ 220 mls/hr ONCE ONCE IVPB 08/18/16 23:30 08/18/16 23:59 Hydromorphone HCl (Dilaudid) 0.5 mg Q4H PRN SUBQ Mild Pain (Pain Scale 1-3) 08/18/16 17:00 08/25/16 16:59 Hydromorphone HCl (Dilaudid) 1 mg Q3H PRN SUBQ Moderate Pain (Pain Scale 4-6) 08/18/16 17:00 08/25/16 16:59 Insulin Aspart (NovoLOG) BEFORE MEALS AND HS SUBQ 08/16/16 06:30 09/15/16 06:29 08/17/16 21:00 Lorazepam (Ativan 2mg/ml 1ml) 0.5 mg Q4H PRN IV For Anxiety 08/15/16 23:15 08/22/16 23:14 Metoprolol Tartrate 25 mg 25 mg Q12HR ORAL 08/17/16 21:00 09/16/16 20:59 08/18/16 22:01 Ondansetron HCl (Zofran) 4 mg Q6H PRN IVP Nausea & Vomiting 08/15/16 23:15 09/14/16 23:14 Polyethylene Glycol (Miralax) 17 gm HSPRN PRN ORAL Constipation 08/15/16 23:15 09/14/16 23:14 Vitamin A/Vitamin D (A & D Oint) 1 applic EVERY 12 HOURS TOPIC 08/16/16 09:30 09/15/16 09:29 08/18/16 22:01 Zolpidem Tartrate (Ambien) 5 mg HSPRN PRN ORAL Insomnia 08/15/16 23:15 09/14/16 23:14 CHRISTY CHESTER Aug 18, 2016 23:47
[2016-08-19 00:15] VITALS: BP 112/66
--- NOTE | 2016-08-19 02:37 | Operative Note - Dictated ---
DATE OF OPERATION: 08/18/2016 PREOPERATIVE DIAGNOSES: 1. Right unstable tipped midshaft spiral tibial fracture. 2. Right fibular fracture with intact mortise. POSTOPERATIVE DIAGNOSES: 1. Right unstable tipped midshaft spiral tibial fracture. 2. Right fibular fracture with intact mortise. PROCEDURES: Closed reduction and internal fixation of the right tibia with a [place] intramedullary nail, size 300 mm length x size 12 mm diameter with a locking proximal and distal screw fixation. SURGEON: Kyle Hagen M.D. COOK CANDY: Jazzmine Christianson PA-C. ANESTHESIOLOGIST: Michael Lee M.D. ANESTHESIA: General LMA anesthesia. EBL: 150 mL. TOURNIQUET TIME: None. COMPLICATIONS: None. BRIEF HISTORY: The patient is a pleasant 81-year-old, [id number] transfer patient, who sustained a fall and had a spiral tibial fracture. She has severe osteoporosis. In discussing this with the patient's son, the patient is a minimal ambulator and just gets out of bed into a chair and then from the chair back into the bed. The patient has not had any other significant injuries or problems in the past. She sustained a right spiral tibial fracture. After full discussion of risks and benefits of the surgery and complications associated with it including infection, bleeding, neurovascular complication, possibility of malunion, nonunion, possible hardware failure, possible need for further surgery, and other complication, she opted for surgical treatment as described above. OPERATIVE PROCEDURE: The patient was brought to the operating table and was placed supine. All pressure points were well padded. General LMA anesthesia was induced and right leg was prepped and draped in usual sterile fashion. An anterior incision was made inferior to the patella through the patellar tendon. The entry point to the tibia was palpated and using an awl, entry was obtained. Subsequently, a ballpoint guidewire was placed in and traversed across the fracture. At this point, reaming was performed all the way up to 13.5 mm reamer. There was minimal chatter. There was severe osteoporosis and there was a capacious canal as a result. At this point, sizing was made and the length appeared to be 300 mm using image intensifier. The position of the guidewire was checked on AP and lateral and appeared to be excellent. The entry point was excellent. At this point, a 300 x 12 mm nail was then passed down through the proximal injury hole over the guidewire to the distal component. Care was given to reduce the distal component as much as possible though because of the capacious nature of the canal, there was still a slight shift of the tibial component more medially. The distal fragment was slightly more medial. Once this was completed, the alignment appeared to be excellent on lateral and on AP slightly shifted, however, it was felt that this was an acceptable position especially with a minimally ambulating patient. This will provide a stable platform for her to [id number] transfers. The fibula was visualized. It appeared to be aligned reasonably well and the mortise was intact, therefore, attempt on fibula fixation was not made. At this point, using a guide, two proximal static screws were placed in without any complication. Subsequently using a freehand technique, two distal screws were placed in without any complication. The proximal screws were 45 mm and 15 mm and the distal screws were 40 mm and 35 mm. This provided excellent stability of the tibia and fibula. At this point, the fracture alignment was checked and it appeared to be excellent. The distal alignment appeared to be excellent. The screws appeared to be in acceptable position. Wounds were thoroughly irrigated using copious amount of fluid. The patellar tendon was closed using #1 Vicryl suture. The subcutaneous tissue was closed with 2-0 Vicryl suture and skin was closed using juan. The patient tolerated the procedure well without any complication and was taken to the recovery room after she was extubated. Sterile dressing was applied prior to taking the patient out. No cast was applied. Kyle Hagen M.D. DR: YESY JOB#: [id number] CC:
[2016-08-19] MEDS: DuoNeb 0.5-3(2.5)mg/3ml neb HHN SCH ×6 (03:56→23:50)
[2016-08-19 04:00] VITALS: BP 101/66
[2016-08-19] MEDS: ceFAZolin sod 1 GM in D5W 55 ML IV SCH ×2 (06:02→13:04)
[2016-08-19] MEDS: NovoLOG Insulin Flexpen SUBQ SCH ×4 (06:24→21:44)
--- NOTE | 2016-08-19 07:03 | Orthopedic Progress Note ---
Orthopedic - Progress Note Subjective Symptoms: improved Objective Vital Signs Last 24 Hour Vital Signs Date Time Temp Pulse Resp B/P Pulse Ox O2 Delivery O2 Flow Rate FiO2 08/19/16 04:00 98.5 100 20 101/66 98 Nasal Cannula 2.0 08/19/16 03:59 78 20 97 Nasal Cannula 3.0 32 08/19/16 03:30 73 20 96 Nasal Cannula 2.0 28 08/19/16 00:15 97.8 89 21 112/66 100 Nasal Cannula 2.0 08/18/16 23:36 90 16 95 Nasal Cannula 2.0 28 08/18/16 23:36 94 20 96 Nasal Cannula 3.0 32 08/18/16 22:01 113 123/51 08/18/16 20:06 97.0 103 32 124/60 95 Nasal Cannula 3.0 08/18/16 20:00 102 32 117/69 95 Nasal Cannula 3.0 08/18/16 19:45 104 15 121/74 95 Nasal Cannula 3.0 08/18/16 19:40 96 20 97 Nasal Cannula 3.0 32 08/18/16 19:30 115 15 130/62 95 Simple Mask 8.0 08/18/16 19:30 94 16 94 Nasal Cannula 2.0 28 08/18/16 19:25 122 153/84 08/18/16 19:15 118 15 141/80 97 Simple Mask 8.0 08/18/16 19:12 115 16 99 08/18/16 19:10 112 21 137/89 97 Simple Mask 8.0 08/18/16 19:05 98.7 118 35 127/77 100 Simple Mask 8.0 08/18/16 16:00 97.8 60 19 134/70 100 Nasal Cannula 2.0 08/18/16 15:22 108 20 100 Nasal Cannula 3.0 08/18/16 15:12 100 20 Nasal Cannula 2.0 08/18/16 12:50 98.1 83 19 118/92 96 Nasal Cannula 2.0 08/18/16 11:32 110 18 100 Nasal Cannula 3.0 08/18/16 11:20 103 20 Nasal Cannula 2.0 08/18/16 08:45 98.2 100 19 119/75 94 Room Air 08/18/16 07:53 112 18 100 Nasal Cannula 3.0 08/18/16 07:48 109 20 96 Nasal Cannula 2.0 I&O Intake and Output 08/18/16 08/19/16 19:00 07:00 Intake Total 300 ml 615 ml Output Total 400 ml 300 ml Balance -100 ml 315 ml IV Total 300 ml 615 ml Output Urine Total 400 ml 250 ml Estimated Blood Loss 50 ml # Voids 1 # Bowel Movements 1 Wound: clean, dry, intact Drains: none Neuro Status: normal Vascular Status: normal Additional Comments Today's labs pending. Xray reviewed: IM nail with reduction and stabilization Assessment Post-op Diagnosis POD 1 Procedure Performed rt tibial nailing Plan Plan: PT, discharge plan - rehab. f/u dr. Hagen 10 days-2 weeks for stable removal and cast change, other - follow labs CARMINA MATT Aug 19, 2016 07:03
--- NOTE | 2016-08-19 07:06 | 48 Hour Post Anesthesia Eval ---
Post Anesthesia Evaluation Procedure: ORIF Right tib Date of Evaluation: Aug 19, 2016 Time of Evaluation: 06:33 Blood Pressure Systolic: 101 0: 66 Pulse Rate: 20 Respiratory Rate: 20 Temperature (Fahrenheit): 98.5 O2 Sat by Pulse Oximetry: 98 Airway: patent Nausea: No Vomiting: No Pain Intensity: 2 Hydration Status: adequate Cardiopulmonary Status: Stable Mental Status/LOC: patient returned to baseline Follow-up Care/Observations: 0 Post-Anesthesia Complications: 0 Follow-up care needed: N/A Iván Partida MD Aug 19, 2016 07:06
[2016-08-19 07:42] LABS: BASOPHILS % (AUTO) 0.9 % (0.0-2.0); EOSINOPHILS % (AUTO) 0.9 % (0.0-3.0); LYMPHOCYTES % (AUTO) 6.8 % (20.0-45.0); MEAN CORPUSCULAR HEMOGLOBIN 27.8 PG (27.0-31.0); MEAN CORPUSCULAR HGB CONC 29.7 G/DL (32.0-36.0); MEAN CORPUSCULAR VOLUME 93 FL (80-99); MEAN PLATELET VOLUME 8.3 FL (6.5-10.1); MONOCYTES % (AUTO) 13.3 % (1.0-10.0); NEUTROPHILS % (AUTO) 78.2 % (45.0-75.0); PLATELET COUNT 185 K/UL (150-450); RED BLOOD COUNT 4.03 M/UL (4.20-5.40); RED CELL DISTRIBUTION WIDTH 15.2 % (11.6-14.8); WHITE BLOOD COUNT 12.8 K/UL (4.8-10.8)
[2016-08-19 08:54] VITALS: BP 119/62
[2016-08-19] MEDS: Docusate 100mg cap ORAL SCH ×3 (09:26→17:43)
[2016-08-19] MEDS: Metoprolol 25mg tab ORAL SCH ×2 (09:27→21:00)
[2016-08-19] MEDS: Enoxaparin 30mg Inj SUBQ SCH ×2 (09:32→21:45)
[2016-08-19] MEDS: Vitamin A&D Oint 2oz Tube TOPIC SCH ×2 (10:33→21:45)
[2016-08-19 10:37] LABS: ANION GAP 10 (5-15); CALCIUM 8.3 mg/dL (8.6-10.2); CARBON DIOXIDE 32 mEQ/L (20-30); CHLORIDE 98 mEQ/L (98-107); CREATININE 1.1 mg/dL (0.5-0.9); HEMOLYSIS 2; POTASSIUM 4.5 mEQ/L (3.4-4.9); SODIUM 140 mEQ/L (135-145)
[2016-08-19] MEDS: celeBREX 200mg Cap **SURGERY PATIENTS ONLY ORAL SCH (10:54)
--- NOTE | 2016-08-19 11:27 | Consultation ---
Consult Note Consult Note ID CONSULT: Dict# [id number] Assessment/Plan ASSESSMENT: 81 y/o female with: // ESBL(+) E.coli UTI // Recurrent BLE cellulitis // Leukocytosis, mild - recurrent post-op, afebrile ( fractures contributing ) // Acute right mildly displaced tib/fib fracture - SP CRIF 08/18 // Recurrent falls // Grade III diastolic dysfunction, severe pulmonary HTN // DM2 // Dementia // NKDA // Full Code PLAN: - continue ancef per SCIP, add IV vancomycin, invanz d# cellulitis, UTI coverage - f/u cultures - monitor CBC, temperatures - monitor BMP - fall precautions - PT Thanks! Will follow RUI AMBRIZ Aug 19, 2016 11:27
[2016-08-19] MEDS: D5 1/2NS 1,000 ML IV SCH (11:45)
--- NOTE | 2016-08-19 11:48 | Diagnostic Imaging Report ---
Indication: FX, postoperative status post ORIF Technique: 2 views of the tibia and fibula Comparison: 08/15/2016 Findings: Surgical skin juan overlies the proximal and distal leg. There is a medullary juno seen reducing previously described distal tibial shaft fracture. There is also a fracture of the distal fibular shaft. Overlying splint appears bony detail Impression: Postoperative right leg, as described. No unusual features
[2016-08-19 12:08] VITALS: BP 94/62
--- NOTE | 2016-08-19 13:31 | Cardiology Progress Note ---
Assessment/Plan Assessment/Plan afib ? chronicty dm htn tib /fib fractue tolerated surgery hr is abit high will increase bb full anticoagulation when safe psot leg surgery Subjective Cardiovascular: Denies: chest pain, lightheadedness, palpitations Respiratory: Denies: shortness of breath Gastrointestinal/Abdominal: Denies: abdominal pain Genitourinary: Denies: burning Objective Last 24 Hour Vital Signs Date Time Temp Pulse Resp B/P Pulse Ox O2 Delivery O2 Flow Rate FiO2 08/19/16 12:08 97.0 84 19 94/62 99 Room Air 08/19/16 11:54 99 20 Nasal Cannula 2.0 32 08/19/16 11:43 93 20 Nasal Cannula 2.0 08/19/16 09:27 91 119/62 08/19/16 08:54 97.0 91 21 119/62 100 Nasal Cannula 2.0 08/19/16 07:53 Nasal Cannula 2.0 28 08/19/16 07:52 100 20 Nasal Cannula 2.0 32 08/19/16 07:42 97 20 Nasal Cannula 2.0 08/19/16 07:40 100 Nasal Cannula 2.0 25 08/19/16 07:06 20 20 98 08/19/16 04:00 98.5 100 20 101/66 98 Nasal Cannula 2.0 08/19/16 03:59 78 20 97 Nasal Cannula 3.0 32 08/19/16 03:30 73 20 96 Nasal Cannula 2.0 28 08/19/16 00:15 97.8 89 21 112/66 100 Nasal Cannula 2.0 08/18/16 23:36 90 16 95 Nasal Cannula 2.0 28 08/18/16 23:36 94 20 96 Nasal Cannula 3.0 32 08/18/16 22:01 113 123/51 08/18/16 20:06 97.0 103 32 124/60 95 Nasal Cannula 3.0 08/18/16 20:00 102 32 117/69 95 Nasal Cannula 3.0 08/18/16 19:45 104 15 121/74 95 Nasal Cannula 3.0 08/18/16 19:40 96 20 97 Nasal Cannula 3.0 32 08/18/16 19:30 115 15 130/62 95 Simple Mask 8.0 08/18/16 19:30 94 16 94 Nasal Cannula 2.0 28 08/18/16 19:25 122 153/84 08/18/16 19:15 118 15 141/80 97 Simple Mask 8.0 08/18/16 19:12 115 16 99 08/18/16 19:10 112 21 137/89 97 Simple Mask 8.0 08/18/16 19:05 98.7 118 35 127/77 100 Simple Mask 8.0 08/18/16 16:00 97.8 60 19 134/70 100 Nasal Cannula 2.0 08/18/16 15:22 108 20 100 Nasal Cannula 3.0 08/18/16 15:12 100 20 Nasal Cannula 2.0 General Appearance: no apparent distress Neck: supple Cardiovascular: normal rate, regular rhythm Respiratory/Chest: lungs clear, normal breath sounds Abdomen: normal bowel sounds, non tender, soft Extremities: no swelling Intake and Output 08/18/16 08/19/16 19:00 07:00 Intake Total 300 ml 1060 ml Output Total 400 ml 550 ml Balance -100 ml 510 ml Intake Oral 240 ml IV Total 300 ml 820 ml Output Urine Total 400 ml 500 ml Estimated Blood Loss 50 ml # Voids 2 # Bowel Movements 1 Laboratory Tests Test 08/19/16 04:45 08/19/16 08:50 White Blood Count 12.8 K/UL (4.8-10.8) H Red Blood Count 4.03 M/UL (4.20-5.40) L Hemoglobin 11.2 G/DL (12.0-16.0) L Hematocrit 37.7 % (37.0-47.0) Mean Corpuscular Volume 93 FL (80-99) Mean Corpuscular Hemoglobin 27.8 PG (27.0-31.0) Mean Corpuscular Hemoglobin Concent 29.7 G/DL (32.0-36.0) L Red Cell Distribution Width 15.2 % (11.6-14.8) H Platelet Count 185 K/UL (150-450) Mean Platelet Volume 8.3 FL (6.5-10.1) Neutrophils (%) (Auto) 78.2 % (45.0-75.0) H Lymphocytes (%) (Auto) 6.8 % (20.0-45.0) L Monocytes (%) (Auto) 13.3 % (1.0-10.0) H Eosinophils (%) (Auto) 0.9 % (0.0-3.0) Basophils (%) (Auto) 0.9 % (0.0-2.0) Sodium Level 140 mEQ/L (135-145) Potassium Level 4.5 mEQ/L (3.4-4.9) Chloride Level 98 mEQ/L (98-107) Carbon Dioxide Level 32 mEQ/L (20-30) H Anion Gap 10 (5-15) Blood Urea Nitrogen 16 mg/dL (7-23) Creatinine 1.1 mg/dL (0.5-0.9) H Estimat Glomerular Filtration Rate mL/min (>60) Glucose Level 215 mg/dL (74-106) H Calcium Level 8.3 mg/dL (8.6-10.2) L Microbiology Date/Time Source Procedure Growth Status 08/16/16 14:30 Urine,Clean Catch Urine Culture - Final Escherichia Coli - Esbl Complete CAITLIN BRAY Aug 19, 2016 13:31
[2016-08-19] MEDS: Vancomycin 1gm/D5W 275ml IVPB SCH ×2 (13:38)
[2016-08-19 16:00] VITALS: BP 113/52
[2016-08-19] MEDS ORDERED: NS Irrig 1000ml ONE (16:30)
[2016-08-19] MEDS ORDERED: LR 1000ml ONE (16:30)
[2016-08-19] MEDS ORDERED: Midazolam 2mg/2ml Inj ONE (16:30)
[2016-08-19] MEDS ORDERED: Sterile Water Irrig 1000ml IRRIG ONE (16:30)
[2016-08-19] MEDS ORDERED: fentaNYL 100 mcg/2 mL IV ONE (16:30)
--- NOTE | 2016-08-19 19:17 | Consultation ---
DATE OF CONSULTATION: 08/19/2016 INFECTIOUS DISEASE CONSULTATION REQUESTING PHYSICIAN: Danya Gee M.D. REASON FOR CONSULTATION: Urinary tract infection. HISTORY OF PRESENT ILLNESS: This 81-year-old female, diabetic female with a history of recurrent falls admitted on 08/15/2016 with right lower extremity pain status post fall. She has evidence of mildly displaced right tibia and fibula fracture for which she underwent close reduction and internal fixation on 08/18/2016. Son reports confusion prior to admission. Urine sample is suggestive of ESBL positive E. coli urinary tract infection. She is currently receiving Ancef per surgical prophylaxis guidelines with recurrence of mild leukocytosis postoperatively and afebrile. ID now consulted to assist in management. PAST MEDICAL HISTORY: 1. Hypertension. 2. Hyperlipidemia. 3. Diabetes type 2. 4. DVT. 5. Paroxysmal atrial fibrillation. 6. Diastolic congestive heart failure with grade 3 diastolic dysfunction. 7. Severe pulmonary hypertension. PAST SURGICAL HISTORY: 1. Hysterectomy. 2. Appendectomy. ALLERGIES: No known drug allergies. MEDICATIONS: 1. Ancef. 2. Lovenox. 3. Celebrex. 4. Metoprolol. FAMILY HISTORY: Noncontributory. SOCIAL HISTORY: The patient is retired, lives with her son. No active tobacco, alcohol, or illicit drug abuse. REVIEW OF SYSTEMS: Unable to obtain. PHYSICAL EXAMINATION: VITAL SIGNS: Maximum temperature 98.5, blood pressure 119/62, heart rate in the 90s, respiratory rate 21 saturating 100% on two liters nasal cannula. GENERAL: No apparent distress, nontoxic appearing. CARDIOVASCULAR: Regular rate and rhythm. No murmurs. PULMONARY: Clear to auscultation bilaterally. ABDOMINAL: Bowel sounds present. Soft, nondistended, and nontender. EXTREMITIES: Right leg is in cast. Bilateral lower extremity erythema, edema, and warmth. LABORATORY DATA: White blood cell count 12.8, increased from 10.7 with left shift. Hemoglobin 11.2, platelets 185, 000. Sodium 140, potassium 4.5, chloride 98, bicarbonate 32, BUN 16, and creatinine 1.1. Thyroid function tests and liver function tests within normal limits. MICROBIOLOGY: On 08/16/2016, urine culture in the ESBL positive E. coli urinary tract infection greater than 100,000 colony-forming units. IMAGING: On 08/17/2016, echocardiogram ejection fraction is 60% to 65% with grade 3 diastolic dysfunction, moderate tricuspid regurgitation, and severe pulmonary hypertension. ASSESSMENT: 1. ESBL positive E. coli urinary tract infection. 2. Recurrent bilateral lower extremity cellulitis. 3. Leukocytosis, recurrent postoperatively and afebrile, fractures are contributing. 4. Acute right mildly displaced tibia and fibula fracture status post closed reduction and internal fixation on 08/18/2016. 5. Recurrent falls. 6. Diabetes type 2. 7. Dementia. 8. No known drug allergies. 9. Full Code. PLAN: 1. Continue Ancef for surgical prophylaxis guidelines. We will add IV vancomycin and Invanz day #1 of 7 for cellulitis and urinary tract infection coverage. 2. Follow up cultures. 3. Monitor CBC and temperatures. 4. Monitor BMP. 5. Fall precautions. 6. Physical therapy. Thank you. We will follow. Raymond Durán M.D. DR: Caprice JOB#: [id number] CC: Danya Gee M.D.; Fax#: [phone] Johnston M.D; Fax#: [phone]
[2016-08-19 20:00] VITALS: BP 106/50
[2016-08-20] VITALS: BP 167/70
--- NOTE | 2016-08-20 00:05 | Pulmonology Progress Note ---
Assessment/Plan Problems: (1) Multiple falls (2) Closed right fibular fracture (3) Closed right tibial fracture (4) recurrent hypoglycemia (5) Cellulitis (6) Diabetes mellitus Assessment/Plan tolerated surgery cardiology cleared sliding scale pt/ot when ok with surgery dc planning soon. Subjective ROS Limited/Unobtainable: No Constitutional: Reports: anorexia, fatigue Musculoskeletal: Reports: pain, stiffness, swelling Allergies: Coded Allergies: No Known Allergies (Unverified , 06/20/13) Objective Last 24 Hour Vital Signs Date Time Temp Pulse Resp B/P Pulse Ox O2 Delivery O2 Flow Rate FiO2 08/19/16 23:49 90 18 100 Nasal Cannula 2.0 28 08/19/16 23:42 89 18 98 Nasal Cannula 2.0 28 08/19/16 21:00 105 106/50 08/19/16 20:00 97.2 105 16 106/50 99 Room Air 08/19/16 18:55 101 18 Nasal Cannula 2.0 28 08/19/16 18:50 98 Nasal Cannula 2.0 28 08/19/16 18:50 100 18 98 Nasal Cannula 2.0 28 08/19/16 18:50 Nasal Cannula 2.0 28 08/19/16 16:00 97.2 71 18 113/52 100 Room Air 08/19/16 15:30 95 20 Nasal Cannula 2.0 32 08/19/16 15:20 90 20 Nasal Cannula 2.0 08/19/16 12:08 97.0 84 19 94/62 99 Room Air 08/19/16 11:54 99 20 Nasal Cannula 2.0 32 08/19/16 11:43 93 20 Nasal Cannula 2.0 08/19/16 09:27 91 119/62 08/19/16 08:54 97.0 91 21 119/62 100 Nasal Cannula 2.0 08/19/16 07:53 Nasal Cannula 2.0 28 08/19/16 07:52 100 20 Nasal Cannula 2.0 32 08/19/16 07:42 97 20 Nasal Cannula 2.0 08/19/16 07:40 100 Nasal Cannula 2.0 25 08/19/16 07:06 20 20 98 08/19/16 04:00 98.5 100 20 101/66 98 Nasal Cannula 2.0 08/19/16 03:59 78 20 97 Nasal Cannula 3.0 32 08/19/16 03:30 73 20 96 Nasal Cannula 2.0 28 08/19/16 00:15 97.8 89 21 112/66 100 Nasal Cannula 2.0 Intake and Output 08/19/16 08/20/16 19:00 07:00 Intake Total 1467.416 ml 780 ml Output Total 500 ml Balance 1467.416 ml 280 ml Intake Oral 240 ml 480 ml IV Total 1227.416 ml 300 ml Output Urine Total 500 ml General Appearance: no acute distress HEENT: normocephalic, atraumatic, PERRL Respiratory/Chest: chest wall non-tender, decreased breath sounds, accessory muscle use Breasts: no masses Cardiovascular: normal peripheral pulses, normal rate, regular rhythm, no JVD Abdomen: normal bowel sounds, soft, non tender, no organomegaly Genitourinary: normal external genitalia Extremities: no cyanosis Skin: rash, lesions, ulcers Neurologic/Psychiatric: safety scientist II-XII grossly normal, no motor/sensory deficits Musculoskeletal: other - lower extremities immobile secondary to severe pain s/ p fracture Laboratory Tests 08/19/16 04:45: White Blood Count 12.8H, Red Blood Count 4.03L, Hemoglobin 11.2L, Hematocrit 37.7, Mean Corpuscular Volume 93, Mean Corpuscular Hemoglobin 27.8, Mean Corpuscular Hemoglobin Concent 29.7L, Red Cell Distribution Width 15.2H, Platelet Count 185, Mean Platelet Volume 8.3, Neutrophils (%) (Auto) 78.2H, Lymphocytes (%) (Auto) 6.8L, Monocytes (%) (Auto) 13.3H, Eosinophils (%) (Auto) 0.9, Basophils (%) (Auto) 0.9 08/19/16 08:50: Sodium Level 140, Potassium Level 4.5, Chloride Level 98, Carbon Dioxide Level 32H, Anion Gap 10, Blood Urea Nitrogen 16, Creatinine 1.1H, Estimat Glomerular Filtration Rate , Glucose Level 215H, Calcium Level 8.3L Current Medications Medications (Trade) Dose Ordered Sig/Andreas Route PRN Reason Start Time Stop Time Status Last Admin Dose Admin Acetaminophen (Tylenol) 650 mg Q6H PRN ORAL Mild Pain/Temp > 100.5 08/18/16 17:00 09/17/16 16:59 Acetaminophen/ Hydrocodone Bitart ([place] 5/325) 1 tab Q4H PRN ORAL MODERATE PAIN 08/18/16 17:00 08/25/16 16:59 Al Hydroxide/Mg Hydroxide (Mylanta II) 30 ml Q6H PRN ORAL dyspepsia 08/15/16 23:15 09/14/16 23:14 Albuterol/ Ipratropium 3 ml 3 ml Q4HRT HHN 08/16/16 12:30 08/21/16 12:29 08/19/16 23:50 Celecoxib (CeleBREX) 200 mg DAILY ORAL 08/19/16 09:00 09/18/16 08:59 08/19/16 10:54 Dextrose (Dextrose 50%) STAT PRN IV Hypoglycemia 08/15/16 23:15 09/14/16 23:14 Dextrose/Sodium Chloride (D5 0.45% NS) 1,000 ml @ 75 mls/hr Q13H IV 08/18/16 23:00 09/17/16 22:59 08/19/16 11:45 Docusate Sodium (Colace) 100 mg THREE TIMES A DAY ORAL 08/18/16 22:00 09/17/16 21:59 08/19/16 17:43 Enoxaparin Sodium (Lovenox) 30 mg EVERY 12 HOURS SUBQ 08/19/16 09:00 09/02/16 08:59 08/19/16 21:45 Ertapenem 1 gm/ Sodium Chloride 55 ml @ 110 mls/hr Q24H IVPB 08/20/16 00:00 08/25/16 00:00 Hydromorphone HCl (Dilaudid) 0.5 mg Q4H PRN SUBQ Mild Pain (Pain Scale 1-3) 08/18/16 17:00 08/25/16 16:59 08/19/16 09:41 Hydromorphone HCl (Dilaudid) 1 mg Q3H PRN SUBQ Moderate Pain (Pain Scale 4-6) 08/18/16 17:00 08/25/16 16:59 Insulin Aspart (NovoLOG) BEFORE MEALS AND HS SUBQ 08/16/16 06:30 09/15/16 06:29 08/19/16 21:44 Lorazepam (Ativan 2mg/ml 1ml) 0.5 mg Q4H PRN IV For Anxiety 08/15/16 23:15 08/22/16 23:14 Metoprolol Tartrate (Lopressor) 37.5 mg Q12HR ORAL 08/19/16 21:00 09/18/16 20:59 Ondansetron HCl (Zofran) 4 mg Q6H PRN IVP Nausea & Vomiting 08/15/16 23:15 09/14/16 23:14 Polyethylene Glycol (Miralax) 17 gm HSPRN PRN ORAL Constipation 08/15/16 23:15 09/14/16 23:14 Vancomycin HCl 1 ea 1 ea DAILY PRN MISC Per rx protocol 08/19/16 11:45 09/18/16 11:44 Vancomycin HCl/ Dextrose (Vancomycin/D5W) 275 ml @ 183.708 mls/hr Q24H IVPB 08/19/16 14:00 08/24/16 13:59 08/19/16 13:38 Vitamin A/Vitamin D (A & D Oint) 1 applic EVERY 12 HOURS TOPIC 08/16/16 09:30 09/15/16 09:29 08/19/16 21:45 Zolpidem Tartrate (Ambien) 5 mg HSPRN PRN ORAL Insomnia 08/15/16 23:15 09/14/16 23:14 CHRISTY CHESTER Aug 20, 2016 00:05
[2016-08-20] MEDS ORDERED: Ertapenem (INVanz) Inj ONE (00:36)
[2016-08-20] MEDS: Ertapenem 1 GM in NS 55 ML IVPB SCH ×2 (00:42→23:46)
[2016-08-20] MEDS: D5 1/2NS 1,000 ML IV SCH ×2 (00:43→14:00)
[2016-08-20] MEDS: DuoNeb 0.5-3(2.5)mg/3ml neb HHN SCH ×6 (03:01→23:19)
[2016-08-20 04:00] VITALS: BP 115/55
[2016-08-20] MEDS: NovoLOG Insulin Flexpen SUBQ SCH ×4 (06:35→21:07)
[2016-08-20 07:33] LABS: BASOPHILS % (AUTO) 0.4 % (0.0-2.0); EOSINOPHILS % (AUTO) 3.3 % (0.0-3.0); LYMPHOCYTES % (AUTO) 7.6 % (20.0-45.0); MEAN CORPUSCULAR HEMOGLOBIN 27.1 PG (27.0-31.0); MEAN CORPUSCULAR HGB CONC 29.6 G/DL (32.0-36.0); MEAN CORPUSCULAR VOLUME 92 FL (80-99); MEAN PLATELET VOLUME 7.3 FL (6.5-10.1); MONOCYTES % (AUTO) 10.4 % (1.0-10.0); NEUTROPHILS % (AUTO) 78.3 % (45.0-75.0); PLATELET COUNT 218 K/UL (150-450); RED BLOOD COUNT 4.04 M/UL (4.20-5.40); RED CELL DISTRIBUTION WIDTH 15.6 % (11.6-14.8); WHITE BLOOD COUNT 12.4 K/UL (4.8-10.8)
[2016-08-20 07:56] LABS: ANION GAP 12 (5-15); CALCIUM 8.4 mg/dL (8.6-10.2); CARBON DIOXIDE 30 mEQ/L (20-30); CHLORIDE 100 mEQ/L (98-107); HEMOLYSIS 6; POTASSIUM 4.4 mEQ/L (3.4-4.9); SODIUM 142 mEQ/L (135-145)
[2016-08-20 08:00] VITALS: BP 128/61
--- NOTE | 2016-08-20 09:18 | Wound Care Consultation ---
Wound Assessment Wound Assessment #1: Wound Number: #1 Wound Present on Admission: Yes New Wound: No Status Change of Wound: No Wound Location Body Site Modif: left Wound Location Body Site: heel Wound Type: pressure ulcer Nitza Test: Does not Nitza Pressure Ulcer Stage: deep tissue injury Wound Thickness: Full Thickness Wound Length: 3.5 Wound Width: 3.5 Wound Depth: utd Percent of Wound Purple/Maroon: 100 Wound Drainage Amount: None Wound Drainage Odor: None/Absent Tissue Surrounding Wound: Erythemic Wound General Appearance: Open to air - pt c/o of site being tender. Maroon color present to site. Wound Assessment #2: Wound Number: #2 Wound Present on Admission: Yes New Wound: No Status Change of Wound: No Wound Location Body Site Modif: left, lower Wound Location Body Site: leg Wound Type: other - cellulitis Nitza Test: Does not Nitza Wound Drainage Amount: None Wound Drainage Odor: None/Absent Tissue Surrounding Wound: dry,scaly skin Wound General Appearance: Reddened, Open to air Wound Comment #1 Left heel Deep Tissue injury. #2 Left lower leg cellulitis. Recommendation -OFFLOAD left heel DTI. -Turn and reposition. -keep clean and dry. -Optimize nutrition. -Local wound care as ordered. -Heel protectors. -Assess and follow up with MD if any changes of condition are noted. KEENAN DUNNE Aug 20, 2016 09:18
[2016-08-20] MEDS: celeBREX 200mg Cap **SURGERY PATIENTS ONLY ORAL SCH (10:31)
[2016-08-20] MEDS: Docusate 100mg cap ORAL SCH ×3 (10:31→17:02)
[2016-08-20] MEDS: Enoxaparin 30mg Inj SUBQ SCH ×2 (10:33→21:08)
[2016-08-20] MEDS: Metoprolol 25mg tab ORAL SCH ×2 (10:35→21:06)
[2016-08-20] MEDS: Vitamin A&D Oint 2oz Tube TOPIC SCH ×2 (10:36→21:06)
[2016-08-20 12:00] VITALS: BP 97/52
--- NOTE | 2016-08-20 13:45 | Diagnostic Imaging Report ---
Indication: POST-OP tibial fibular fracture Technique: Digital intraoperative images Comparison: 08/15/2015 Findings: Digital intraoperative images demonstrate is an intramedullary juno or repair of previously described mid to distal tibial fracture. Distal fibular fracture is also demonstrated Impression: Intraoperative images, as described
--- NOTE | 2016-08-20 13:45 | Diagnostic Imaging Report ---
Indication: POST-OP Technique: 2 views of the right knee Comparison: None Findings:Skin juan overlie the anterior knee. Small amount of retained air from the surgical wound is seen in the soft tissues. The proximal end of a medullary juno is seen within the tibial shaft. Bones are demineralized. Impression:Postoperative changes, as described
[2016-08-20] MEDS: Vancomycin 1gm/D5W 275ml IVPB SCH ×2 (15:59)
[2016-08-20 16:11] VITALS: BP 109/76
--- NOTE | 2016-08-20 18:36 | Infectious Diseases Prog Note ---
Assessment/Plan Assessment/Plan ASSESSMENT: 81 y/o female with: // ESBL(+) E.coli UTI // Recurrent BLE cellulitis // Leukocytosis, mild - recurrent post-op, afebrile ( fractures contributing ) // Acute right mildly displaced tib/fib fracture - SP CRIF 08/18 // Recurrent falls // Grade III diastolic dysfunction, severe pulmonary HTN // DM2 // Dementia // NKDA // Full Code PLAN: - continue ancef per SCIP, add IV vancomycin, invanz d# 2 / cellulitis, UTI coverage - f/u cultures - monitor CBC, temperatures - monitor BMP - fall precautions - PT Subjective Constitutional: Denies: anorexia, chills, drenching sweats, fatigue, fever, no symptoms, other Allergies: Coded Allergies: No Known Allergies (Unverified , 06/20/13) Objective Vital Signs Last 24 Hour Vital Signs Date Time Temp Pulse Resp B/P Pulse Ox O2 Delivery O2 Flow Rate FiO2 08/20/16 16:11 99.7 101 18 109/76 96 Room Air 08/20/16 15:05 90 18 98 Nasal Cannula 2.0 28 08/20/16 15:05 91 18 98 Nasal Cannula 2.0 28 08/20/16 12:00 97.9 91 20 97/52 99 Room Air 08/20/16 11:23 92 18 98 Nasal Cannula 2.0 28 08/20/16 11:23 93 18 98 Nasal Cannula 2.0 28 08/20/16 10:35 116 118/51 08/20/16 08:00 97.5 104 20 128/61 96 Nasal Cannula 08/20/16 07:50 98 Nasal Cannula 2.0 28 08/20/16 07:50 Nasal Cannula 2.0 28 08/20/16 07:50 90 18 98 Nasal Cannula 2.0 28 08/20/16 07:50 89 18 98 Nasal Cannula 2.0 28 08/20/16 04:00 98.1 116 20 115/55 93 Nasal Cannula 08/20/16 03:16 96 18 100 Nasal Cannula 2.0 28 08/20/16 02:59 99 18 96 Nasal Cannula 2.0 28 08/20/16 00:00 97.3 94 20 167/70 100 08/19/16 23:49 90 18 100 Nasal Cannula 2.0 28 08/19/16 23:42 89 18 98 Nasal Cannula 2.0 28 08/19/16 21:00 105 106/50 08/19/16 20:00 97.2 105 16 106/50 99 Room Air 08/19/16 18:55 101 18 Nasal Cannula 2.0 28 08/19/16 18:50 98 Nasal Cannula 2.0 28 08/19/16 18:50 100 18 98 Nasal Cannula 2.0 28 08/19/16 18:50 Nasal Cannula 2.0 28 Height (Feet): 5 Height (Inches): 8.00 Weight (Pounds): 200 HEENT: anicteric Respiratory/Chest: normal breath sounds Cardiovascular: regular rhythm Abdomen: non distended Laboratory Tests Test 08/20/16 05:25 White Blood Count 12.4 K/UL (4.8-10.8) H Red Blood Count 4.04 M/UL (4.20-5.40) L Hemoglobin 10.9 G/DL (12.0-16.0) L Hematocrit 37.0 % (37.0-47.0) Mean Corpuscular Volume 92 FL (80-99) Mean Corpuscular Hemoglobin 27.1 PG (27.0-31.0) Mean Corpuscular Hemoglobin Concent 29.6 G/DL (32.0-36.0) L Red Cell Distribution Width 15.6 % (11.6-14.8) H Platelet Count 218 K/UL (150-450) Mean Platelet Volume 7.3 FL (6.5-10.1) Neutrophils (%) (Auto) 78.3 % (45.0-75.0) H Lymphocytes (%) (Auto) 7.6 % (20.0-45.0) L Monocytes (%) (Auto) 10.4 % (1.0-10.0) H Eosinophils (%) (Auto) 3.3 % (0.0-3.0) H Basophils (%) (Auto) 0.4 % (0.0-2.0) Sodium Level 142 mEQ/L (135-145) Potassium Level 4.4 mEQ/L (3.4-4.9) Chloride Level 100 mEQ/L (98-107) Carbon Dioxide Level 30 mEQ/L (20-30) Anion Gap 12 (5-15) Blood Urea Nitrogen 14 mg/dL (7-23) Creatinine 1.0 mg/dL (0.5-0.9) H Estimat Glomerular Filtration Rate mL/min (>60) Glucose Level 130 mg/dL (74-106) H Calcium Level 8.4 mg/dL (8.6-10.2) L Current Medications Medications (Trade) Dose Ordered Sig/Andreas Route PRN Reason Start Time Stop Time Status Last Admin Dose Admin Acetaminophen (Tylenol) 650 mg Q6H PRN ORAL Mild Pain/Temp > 100.5 08/18/16 17:00 09/17/16 16:59 Acetaminophen/ Hydrocodone Bitart ([place] 5/325) 1 tab Q4H PRN ORAL MODERATE PAIN 08/18/16 17:00 08/25/16 16:59 Al Hydroxide/Mg Hydroxide (Mylanta II) 30 ml Q6H PRN ORAL dyspepsia 08/15/16 23:15 09/14/16 23:14 Albuterol/ Ipratropium 3 ml 3 ml Q4HRT HHN 08/16/16 12:30 08/21/16 12:29 08/20/16 15:05 Celecoxib (CeleBREX) 200 mg DAILY ORAL 08/19/16 09:00 09/18/16 08:59 08/20/16 10:31 Dextrose (Dextrose 50%) STAT PRN IV Hypoglycemia 08/15/16 23:15 09/14/16 23:14 Dextrose/Sodium Chloride (D5 0.45% NS) 1,000 ml @ 75 mls/hr Q13H IV 08/18/16 23:00 09/17/16 22:59 08/20/16 00:43 Docusate Sodium (Colace) 100 mg THREE TIMES A DAY ORAL 08/18/16 22:00 09/17/16 21:59 08/20/16 17:02 Enoxaparin Sodium (Lovenox) 30 mg EVERY 12 HOURS SUBQ 08/19/16 09:00 09/02/16 08:59 08/20/16 10:33 Ertapenem 1 gm/ Sodium Chloride 55 ml @ 110 mls/hr Q24H IVPB 08/20/16 00:00 08/25/16 00:00 08/20/16 00:42 Hydromorphone HCl (Dilaudid) 0.5 mg Q4H PRN SUBQ Mild Pain (Pain Scale 1-3) 08/18/16 17:00 08/25/16 16:59 08/19/16 09:41 Hydromorphone HCl (Dilaudid) 1 mg Q3H PRN SUBQ Moderate Pain (Pain Scale 4-6) 08/18/16 17:00 08/25/16 16:59 Insulin Aspart (NovoLOG) BEFORE MEALS AND HS SUBQ 08/16/16 06:30 09/15/16 06:29 08/20/16 16:57 Lorazepam (Ativan 2mg/ml 1ml) 0.5 mg Q4H PRN IV For Anxiety 08/15/16 23:15 08/22/16 23:14 Metoprolol Tartrate (Lopressor) 37.5 mg Q12HR ORAL 08/19/16 21:00 09/18/16 20:59 08/20/16 10:35 Ondansetron HCl (Zofran) 4 mg Q6H PRN IVP Nausea & Vomiting 08/15/16 23:15 09/14/16 23:14 Polyethylene Glycol (Miralax) 17 gm HSPRN PRN ORAL Constipation 08/15/16 23:15 09/14/16 23:14 Vancomycin HCl 1 ea 1 ea DAILY PRN MISC Per rx protocol 08/19/16 11:45 09/18/16 11:44 Vancomycin HCl/ Dextrose (Vancomycin/D5W) 275 ml @ 183.708 mls/hr Q24H IVPB 08/19/16 14:00 08/24/16 13:59 08/20/16 15:59 Vitamin A/Vitamin D (A & D Oint) 1 applic EVERY 12 HOURS TOPIC 08/16/16 09:30 09/15/16 09:29 08/20/16 10:36 Zolpidem Tartrate (Ambien) 5 mg HSPRN PRN ORAL Insomnia 08/15/16 23:15 09/14/16 23:14 ALEJANDRA RUSH M.D. Aug 20, 2016 18:36
[2016-08-20 20:10] VITALS: BP 117/68
[2016-08-21] VITALS: BP 113/73
[2016-08-21] MEDS: D5 1/2NS 1,000 ML IV SCH (00:55)
[2016-08-21] MEDS: DuoNeb 0.5-3(2.5)mg/3ml neb HHN SCH ×3 (03:00→11:42)
[2016-08-21 04:00] VITALS: BP 115/65
[2016-08-21] MEDS: NovoLOG Insulin Flexpen SUBQ SCH ×4 (06:04→21:11)
[2016-08-21 08:00] VITALS: BP 111/60
[2016-08-21 08:45] LABS: BASOPHILS % (AUTO) 0.6 % (0.0-2.0); EOSINOPHILS % (AUTO) 4.5 % (0.0-3.0); LYMPHOCYTES % (AUTO) 9.4 % (20.0-45.0); MEAN CORPUSCULAR HEMOGLOBIN 27.9 PG (27.0-31.0); MEAN CORPUSCULAR HGB CONC 30.7 G/DL (32.0-36.0); MEAN CORPUSCULAR VOLUME 91 FL (80-99); MEAN PLATELET VOLUME 7.7 FL (6.5-10.1); MONOCYTES % (AUTO) 13.4 % (1.0-10.0); NEUTROPHILS % (AUTO) 72.1 % (45.0-75.0); PLATELET COUNT 205 K/UL (150-450); RED BLOOD COUNT 3.63 M/UL (4.20-5.40); RED CELL DISTRIBUTION WIDTH 15.4 % (11.6-14.8)
[2016-08-21 09:09] LABS: ANION GAP 9 (5-15); CALCIUM 8.4 mg/dL (8.6-10.2); CARBON DIOXIDE 32 mEQ/L (20-30); CHLORIDE 101 mEQ/L (98-107); CREATININE 1.1 mg/dL (0.5-0.9); HEMOLYSIS 1; POTASSIUM 4.2 mEQ/L (3.4-4.9); SODIUM 142 mEQ/L (135-145)
[2016-08-21] MEDS: Docusate 100mg cap ORAL SCH ×3 (10:34→17:27)
[2016-08-21] MEDS: celeBREX 200mg Cap **SURGERY PATIENTS ONLY ORAL SCH (10:34)
[2016-08-21] MEDS: Metoprolol 25mg tab ORAL SCH ×2 (10:35→21:00)
[2016-08-21] MEDS: Vitamin A&D Oint 2oz Tube TOPIC SCH ×2 (10:35→21:11)
[2016-08-21] MEDS: Enoxaparin 30mg Inj SUBQ SCH ×2 (10:41→21:10)
--- NOTE | 2016-08-21 11:12 | Infectious Diseases Prog Note ---
Assessment/Plan Assessment/Plan ASSESSMENT: 81 y/o female with: // ESBL(+) E.coli UTI // Recurrent BLE cellulitis // Leukocytosis, SP // Acute right mildly displaced tib/fib fracture - SP CRIF 08/18 // Recurrent falls // Grade III diastolic dysfunction, severe pulmonary HTN // DM2 // Dementia // NKDA // Full Code PLAN: - continue IV vancomycin, invanz d# 3 / cellulitis, UTI coverage - monitor CBC, temperatures - monitor BMP - fall precautions - PT Subjective Constitutional: Denies: anorexia, chills, drenching sweats, fatigue, fever, no symptoms, other Allergies: Coded Allergies: No Known Allergies (Unverified , 06/20/13) Objective Vital Signs Last 24 Hour Vital Signs Date Time Temp Pulse Resp B/P Pulse Ox O2 Delivery O2 Flow Rate FiO2 08/21/16 10:35 96 146/74 08/21/16 08:18 85 18 99 Nasal Cannula 2.0 28 08/21/16 08:07 Nasal Cannula 2.0 28 08/21/16 08:07 98 Nasal Cannula 2.0 28 08/21/16 08:07 85 18 98 Nasal Cannula 2.0 28 08/21/16 08:00 97.5 88 19 111/60 100 Nasal Cannula 08/21/16 04:00 97.4 80 22 115/65 100 Nasal Cannula 2.0 08/21/16 03:12 93 18 99 Nasal Cannula 2.0 28 08/21/16 03:01 90 18 100 Nasal Cannula 2.0 28 08/21/16 00:00 97.4 82 24 113/73 98 Nasal Cannula 2.0 08/20/16 23:30 95 18 98 Nasal Cannula 2.0 28 08/20/16 23:19 95 18 100 Nasal Cannula 2.0 28 08/20/16 21:06 100 117/68 08/20/16 20:10 99.0 100 19 117/68 99 Room Air 08/20/16 19:40 92 18 99 Nasal Cannula 2.0 28 08/20/16 19:25 99 Nasal Cannula 2.0 28 08/20/16 19:25 Nasal Cannula 2.0 28 08/20/16 19:25 88 18 99 Nasal Cannula 2.0 28 08/20/16 16:11 99.7 101 18 109/76 96 Room Air 08/20/16 15:05 90 18 98 Nasal Cannula 2.0 28 08/20/16 15:05 91 18 98 Nasal Cannula 2.0 28 08/20/16 12:00 97.9 91 20 97/52 99 Room Air 08/20/16 11:23 92 18 98 Nasal Cannula 2.0 28 08/20/16 11:23 93 18 98 Nasal Cannula 2.0 28 Height (Feet): 5 Height (Inches): 8.00 Weight (Pounds): 200 Respiratory/Chest: chest wall non-tender Cardiovascular: regular rhythm Abdomen: no organomegaly Laboratory Tests Test 08/21/16 08:15 White Blood Count 10.0 K/UL (4.8-10.8) Red Blood Count 3.63 M/UL (4.20-5.40) L Hemoglobin 10.1 G/DL (12.0-16.0) L Hematocrit 33.1 % (37.0-47.0) L Mean Corpuscular Volume 91 FL (80-99) Mean Corpuscular Hemoglobin 27.9 PG (27.0-31.0) Mean Corpuscular Hemoglobin Concent 30.7 G/DL (32.0-36.0) L Red Cell Distribution Width 15.4 % (11.6-14.8) H Platelet Count 205 K/UL (150-450) Mean Platelet Volume 7.7 FL (6.5-10.1) Neutrophils (%) (Auto) 72.1 % (45.0-75.0) Lymphocytes (%) (Auto) 9.4 % (20.0-45.0) L Monocytes (%) (Auto) 13.4 % (1.0-10.0) H Eosinophils (%) (Auto) 4.5 % (0.0-3.0) H Basophils (%) (Auto) 0.6 % (0.0-2.0) Sodium Level 142 mEQ/L (135-145) Potassium Level 4.2 mEQ/L (3.4-4.9) Chloride Level 101 mEQ/L (98-107) Carbon Dioxide Level 32 mEQ/L (20-30) H Anion Gap 9 (5-15) Blood Urea Nitrogen 13 mg/dL (7-23) Creatinine 1.1 mg/dL (0.5-0.9) H Estimat Glomerular Filtration Rate mL/min (>60) Glucose Level 157 mg/dL (74-106) H Calcium Level 8.4 mg/dL (8.6-10.2) L Current Medications Medications (Trade) Dose Ordered Sig/Andreas Route PRN Reason Start Time Stop Time Status Last Admin Dose Admin Acetaminophen (Tylenol) 650 mg Q6H PRN ORAL Mild Pain/Temp > 100.5 08/18/16 17:00 09/17/16 16:59 Acetaminophen/ Hydrocodone Bitart ([place] 5/325) 1 tab Q4H PRN ORAL MODERATE PAIN 08/18/16 17:00 08/25/16 16:59 Al Hydroxide/Mg Hydroxide (Mylanta II) 30 ml Q6H PRN ORAL dyspepsia 08/15/16 23:15 09/14/16 23:14 Albuterol/ Ipratropium 3 ml 3 ml Q4HRT HHN 08/16/16 12:30 08/21/16 12:29 08/21/16 08:07 Celecoxib (CeleBREX) 200 mg DAILY ORAL 08/19/16 09:00 09/18/16 08:59 08/21/16 10:34 Dextrose (Dextrose 50%) STAT PRN IV Hypoglycemia 08/15/16 23:15 09/14/16 23:14 Dextrose/Sodium Chloride (D5 0.45% NS) 1,000 ml @ 75 mls/hr Q13H IV 08/18/16 23:00 09/17/16 22:59 08/21/16 00:55 Docusate Sodium (Colace) 100 mg THREE TIMES A DAY ORAL 08/18/16 22:00 09/17/16 21:59 08/21/16 10:34 Enoxaparin Sodium (Lovenox) 30 mg EVERY 12 HOURS SUBQ 08/19/16 09:00 09/02/16 08:59 08/21/16 10:41 Ertapenem 1 gm/ Sodium Chloride 55 ml @ 110 mls/hr Q24H IVPB 08/20/16 00:00 08/25/16 00:00 08/20/16 23:46 Hydromorphone HCl (Dilaudid) 0.5 mg Q4H PRN SUBQ Mild Pain (Pain Scale 1-3) 08/18/16 17:00 08/25/16 16:59 08/19/16 09:41 Hydromorphone HCl (Dilaudid) 1 mg Q3H PRN SUBQ Moderate Pain (Pain Scale 4-6) 08/18/16 17:00 08/25/16 16:59 Insulin Aspart (NovoLOG) BEFORE MEALS AND HS SUBQ 08/16/16 06:30 09/15/16 06:29 08/21/16 06:04 Lorazepam (Ativan 2mg/ml 1ml) 0.5 mg Q4H PRN IV For Anxiety 08/15/16 23:15 08/22/16 23:14 Metoprolol Tartrate (Lopressor) 37.5 mg Q12HR ORAL 08/19/16 21:00 09/18/16 20:59 08/21/16 10:35 Ondansetron HCl (Zofran) 4 mg Q6H PRN IVP Nausea & Vomiting 08/15/16 23:15 09/14/16 23:14 Polyethylene Glycol (Miralax) 17 gm HSPRN PRN ORAL Constipation 08/15/16 23:15 09/14/16 23:14 Vancomycin HCl 1 ea 1 ea DAILY PRN MISC Per rx protocol 08/19/16 11:45 09/18/16 11:44 Vancomycin HCl/ Dextrose (Vancomycin/D5W) 275 ml @ 183.708 mls/hr Q24H IVPB 08/19/16 14:00 08/24/16 13:59 08/20/16 15:59 Vitamin A/Vitamin D (A & D Oint) 1 applic EVERY 12 HOURS TOPIC 08/16/16 09:30 09/15/16 09:29 08/21/16 10:35 Zolpidem Tartrate (Ambien) 5 mg HSPRN PRN ORAL Insomnia 08/15/16 23:15 09/14/16 23:14 ALEJANDRA RUSH M.D. Aug 21, 2016 11:12
[2016-08-21 12:00] VITALS: BP 116/68
[2016-08-21] MEDS: Vancomycin 1gm/D5W 275ml IVPB SCH ×2 (14:19)
[2016-08-21 16:00] VITALS: BP 129/54
[2016-08-21] MEDS ORDERED: D5 1/2NS 1000ml IV ONE ×2 (16:50→16:54)
[2016-08-21] MEDS ORDERED: Tubing IV Secondary IV ONE ×2 (16:50→16:54)
[2016-08-21] MEDS ORDERED: 1/2 NS 1000ml IV ONE (16:54)
[2016-08-21] MEDS ORDERED: TYLENOL650 MG/20. ORAL (17:27)
[2016-08-21] MEDS ORDERED: MYLANTA II30 ML PO (17:33)
[2016-08-21] MEDS ORDERED: CELEBREX200 MG ORAL (17:34)
[2016-08-21] MEDS ORDERED: DOCUSATE SODIU100 MG ORAL (17:35)
[2016-08-21] MEDS ORDERED: LOVENOX10 MG SUBQ (17:35)
[2016-08-21] MEDS ORDERED: HYDROCODON-ACE1 EA15 ORAL (17:37)
[2016-08-21] MEDS ORDERED: DILAUDID1 MG/M1 SUBQ (17:42)
[2016-08-21] MEDS ORDERED: HYDROMORPH0.5 MG/0.5 SUBQ (17:44)
[2016-08-21] MEDS ORDERED: NOVOLOG100 UNIT/4 SQ (17:45)
[2016-08-21] MEDS ORDERED: LORAZEPAM2 MG/1 M1 IV (17:46)
[2016-08-21] MEDS ORDERED: METOPROLOL TART25 MG ORAL (17:48)
[2016-08-21] MEDS ORDERED: ZOFRAN 4 MG4 MG/2 ML IV (17:49)
[2016-08-21] MEDS ORDERED: MIRALAX17 G2 ORAL ×2 (17:50→17:52)
[2016-08-21] MEDS ORDERED: A & D OINT1 APPLI1 TOPIC (17:54)
[2016-08-21] MEDS ORDERED: ZOLPIDEM TARTRAT5 MG ORAL (17:54)
[2016-08-21] MEDS ORDERED: ACETAMINOPHEN325 M3 PO (17:57)
[2016-08-21] MEDS ORDERED: INVANZ1 GM IVPB (17:58)
[2016-08-21] MEDS ORDERED: VANCOMYCIN1 GM/2502 IVPB (18:00)
--- NOTE | 2016-08-21 18:03 | Pulmonology Progress Note ---
Assessment/Plan Problems: (1) Multiple falls (2) Closed right fibular fracture (3) Closed right tibial fracture (4) recurrent hypoglycemia (5) Cellulitis (6) Diabetes mellitus Assessment/Plan tolerated surgery cardiology cleared sliding scale pt/ot when ok with surgery dc planning soon. Subjective Allergies: Coded Allergies: No Known Allergies (Unverified , 06/20/13) Objective Last 24 Hour Vital Signs Date Time Temp Pulse Resp B/P Pulse Ox O2 Delivery O2 Flow Rate FiO2 08/21/16 16:00 97.5 71 22 129/54 99 Nasal Cannula 2.0 08/21/16 12:00 97.0 88 20 116/68 100 Nasal Cannula 08/21/16 11:52 88 18 100 Nasal Cannula 2.0 28 08/21/16 11:42 89 16 99 Nasal Cannula 2.0 28 08/21/16 10:35 96 146/74 08/21/16 08:18 85 18 99 Nasal Cannula 2.0 28 08/21/16 08:07 Nasal Cannula 2.0 28 08/21/16 08:07 98 Nasal Cannula 2.0 28 08/21/16 08:07 85 18 98 Nasal Cannula 2.0 28 08/21/16 08:00 97.5 88 19 111/60 100 Nasal Cannula 08/21/16 04:00 97.4 80 22 115/65 100 Nasal Cannula 2.0 08/21/16 03:12 93 18 99 Nasal Cannula 2.0 28 08/21/16 03:01 90 18 100 Nasal Cannula 2.0 28 08/21/16 00:00 97.4 82 24 113/73 98 Nasal Cannula 2.0 08/20/16 23:30 95 18 98 Nasal Cannula 2.0 28 08/20/16 23:19 95 18 100 Nasal Cannula 2.0 28 08/20/16 21:06 100 117/68 08/20/16 20:10 99.0 100 19 117/68 99 Room Air 08/20/16 19:40 92 18 99 Nasal Cannula 2.0 28 08/20/16 19:25 99 Nasal Cannula 2.0 28 08/20/16 19:25 Nasal Cannula 2.0 28 08/20/16 19:25 88 18 99 Nasal Cannula 2.0 28 Intake and Output 08/20/16 08/21/16 19:00 07:00 Intake Total 575.000 ml 891 ml Output Total 350 ml 650 ml Balance 225.000 ml 241 ml Intake Oral 225 ml 236 ml IV Total 350.000 ml 655 ml Output Urine Total 350 ml 650 ml # Voids 2 General Appearance: no acute distress HEENT: normocephalic, atraumatic, PERRL Respiratory/Chest: chest wall non-tender, decreased breath sounds, accessory muscle use Breasts: no masses Cardiovascular: normal peripheral pulses, normal rate, regular rhythm, no JVD Abdomen: normal bowel sounds, soft, non tender, no organomegaly Genitourinary: normal external genitalia Extremities: no cyanosis Skin: rash, lesions 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, no motor/sensory deficits Musculoskeletal: other - lower extremities immobile secondary to extreme pain s /p fracture Laboratory Tests 08/21/16 08:15: White Blood Count 10.0, Red Blood Count 3.63L, Hemoglobin 10.1L, Hematocrit 33.1L, Mean Corpuscular Volume 91, Mean Corpuscular Hemoglobin 27.9, Mean Corpuscular Hemoglobin Concent 30.7L, Red Cell Distribution Width 15.4H, Platelet Count 205, Mean Platelet Volume 7.7, Neutrophils (%) (Auto) 72.1, Lymphocytes (%) (Auto) 9.4L, Monocytes (%) (Auto) 13.4H, Eosinophils (%) (Auto) 4.5H, Basophils (%) (Auto) 0.6, Sodium Level 142, Potassium Level 4.2, Chloride Level 101, Carbon Dioxide Level 32H, Anion Gap 9, Blood Urea Nitrogen 13, Creatinine 1.1H, Estimat Glomerular Filtration Rate , Glucose Level 157H, Calcium Level 8.4L Current Medications Medications (Trade) Dose Ordered Sig/Andreas Route PRN Reason Start Time Stop Time Status Last Admin Dose Admin Acetaminophen (Tylenol) 650 mg Q6H PRN ORAL Mild Pain/Temp > 100.5 08/18/16 17:00 09/17/16 16:59 Acetaminophen/ Hydrocodone Bitart ([place] 5/325) 1 tab Q4H PRN ORAL MODERATE PAIN 08/18/16 17:00 08/25/16 16:59 Al Hydroxide/Mg Hydroxide (Mylanta II) 30 ml Q6H PRN ORAL dyspepsia 08/15/16 23:15 09/14/16 23:14 Celecoxib (CeleBREX) 200 mg DAILY ORAL 08/19/16 09:00 09/18/16 08:59 08/21/16 10:34 Dextrose (Dextrose 50%) STAT PRN IV Hypoglycemia 08/15/16 23:15 09/14/16 23:14 Dextrose/Sodium Chloride (D5 0.45% NS) 1,000 ml @ 75 mls/hr Q13H IV 08/18/16 23:00 09/17/16 22:59 08/21/16 00:55 Docusate Sodium (Colace) 100 mg THREE TIMES A DAY ORAL 08/18/16 22:00 09/17/16 21:59 08/21/16 17:27 Enoxaparin Sodium (Lovenox) 30 mg EVERY 12 HOURS SUBQ 08/19/16 09:00 09/02/16 08:59 08/21/16 10:41 Ertapenem 1 gm/ Sodium Chloride 55 ml @ 110 mls/hr Q24H IVPB 08/20/16 00:00 08/25/16 00:00 08/20/16 23:46 Hydromorphone HCl (Dilaudid) 0.5 mg Q4H PRN SUBQ Mild Pain (Pain Scale 1-3) 08/18/16 17:00 08/25/16 16:59 08/19/16 09:41 Hydromorphone HCl (Dilaudid) 1 mg Q3H PRN SUBQ Moderate Pain (Pain Scale 4-6) 08/18/16 17:00 08/25/16 16:59 Insulin Aspart (NovoLOG) BEFORE MEALS AND HS SUBQ 08/16/16 06:30 09/15/16 06:29 08/21/16 17:27 Lorazepam (Ativan 2mg/ml 1ml) 0.5 mg Q4H PRN IV For Anxiety 08/15/16 23:15 08/22/16 23:14 Metoprolol Tartrate (Lopressor) 37.5 mg Q12HR ORAL 08/19/16 21:00 09/18/16 20:59 08/21/16 10:35 Ondansetron HCl (Zofran) 4 mg Q6H PRN IVP Nausea & Vomiting 08/15/16 23:15 09/14/16 23:14 Polyethylene Glycol (Miralax) 17 gm HSPRN PRN ORAL Constipation 08/15/16 23:15 09/14/16 23:14 Vancomycin HCl 1 ea 1 ea DAILY PRN MISC Per rx protocol 08/19/16 11:45 09/18/16 11:44 Vancomycin HCl/ Dextrose (Vancomycin/D5W) 275 ml @ 183.708 mls/hr Q24H IVPB 08/19/16 14:00 08/24/16 13:59 08/21/16 14:19 Vitamin A/Vitamin D 1 applic 1 applic EVERY 12 HOURS TOPIC 08/16/16 09:30 09/15/16 09:29 08/21/16 10:35 Zolpidem Tartrate (Ambien) 5 mg HSPRN PRN ORAL Insomnia 08/15/16 23:15 09/14/16 23:14 CHRISTY CHESTER Aug 21, 2016 18:03
--- NOTE | 2016-08-22 13:22 | Discharge Summary ---
Discharge Summary Hospital Course Date of Admission Aug 15, 2016 at 18:53 Date of Discharge Aug 21, 2016 at 21:50 Admitting Diagnosis multiple falls/right leg fracture HPI China Gan is a 81 year old female who was admitted on Aug 15, 2016 at 18: 53 for Multiple Falls/Right Leg Fracture Hospital Course [id number] Discharge Discharge Disposition Patient was discharged to [facility] (04) Discharge Diagnoses: Yoon Stephens NP Aug 22, 2016 13:22
--- NOTE | 2016-08-28 19:18 | Consultation ---
DATE OF CONSULTATION: 08/16/2016 ORTHOPEDIC CONSULTATION: CONSULTING PHYSICIAN: Kyle Hagen M.D. REFERRING PHYSICIAN: Danya Gee M.D. REASON FOR CONSULTATION: Right tib-fib fracture after a fall. BRIEF HISTORY: The patient is an 81-year-old female who sustained a fall yesterday and broke her right tib-fib. The patient is known to the [facility] and Dr. Gee for sequelae of diabetes for some diabetic neuropathy as well as some venous stasis ulcers on the left side. There has been no ulcerations reportedly on the right side. She apparently had a ground-level fall. She ambulates with a walker usually. She landed on her right leg and had a right tib-fib fracture. This was partially reduced in the ER. This is an unstable fracture. Orthopedic consultation was obtained. PAST MEDICAL HISTORY: Significant for history of hypertension, diabetes, and hyperkalemia. PAST SURGICAL HISTORY: Not available. MEDICATIONS: Please see chart. This was reviewed and reconciled. ALLERGIES: No known drug allergies. SOCIAL HISTORY: She walks around with a walker at home. She lives in her own house reportedly. She has had no other significant injuries or trauma. The history is obtained from the clinical notes that are available in the chart and from the ER. PHYSICAL EXAMINATION: Orthopedic examination of the patient reveals that she is in a well-padded splint on the right side. There are good pulses distally. There is good capillary refill. Neurologic examination generally is intact. She is able to wiggle her toes although she has got some generalized decreased sensation due to diabetes. She has no significant tenderness of the femur. She has got tenderness over the tibia and fibula. The rest of the skin examination was deferred because a well-padded sling was not taken off. This was reportedly Colles fracture per ER as well as admitting physician. X-RAYS AND MRIS: X-ray of right tib-fib are reviewed. There is evidence of a midshaft tibial fracture with a distal fibular fracture. This is a spiral oblique fracture, which is unstable. IMPRESSION: Right tib-fib unstable fracture in an 81-year-old individual. PLAN: At this time, I had a discussion with the patient. I explained to her my findings. I recommend that we proceed with IM nailing of the right tib-fib. Risks, benefits, and complications of the surgery were discussed with her. Risks of infection, bleeding, and neurovascular complication were discussed with her. She understands and agrees with the plan. She has had atrial fibrillation and most likely requires Cardiology clearance prior to proceeding with surgery. Therefore, I recommend evaluation by earth moving machine operator prior to proceeding the surgery and we will plan on proceeding surgery on Thursday afternoon to allow some time for evaluation and optimization prior to surgery. All questions were answered. Risks, benefits, and complications of the surgery including infection, bleeding, neurovascular complication, possibility of malunion or nonunion, possibility of diabetic complication with wound healing, possible other complications were discussed with her. She understands and agrees the treatment plan. All questions were answered. Kyle Hagen M.D. DR: VASYL JOB#: [id number] CC: EDWIN
== END 2016-08-21 21:50 | DRG 493 ==
LOC: ENRESERVTM → ENRESERVDT → EDBD 17:55 → EMR 18:10 → 4W 18:53 → EDBEDREQ 20:05
DX: S82.401A Unspecified fracture of shaft of right fibula, initial encounter for closed fracture (principal); N39.0 Urinary tract infection, site not specified; F03.90 Unspecified dementia, unspecified severity, without behavioral disturbance, psychotic disturbance, mood disturbance, and anxiety; I11.0 Hypertensive heart disease with heart failure; I50.32 Chronic diastolic (congestive) heart failure; L03.116 Cellulitis of left lower limb; E87.5 Hyperkalemia; E11.649 Type 2 diabetes mellitus with hypoglycemia without coma; S82.201A Unspecified fracture of shaft of right tibia, initial encounter for closed fracture; I48.91 Unspecified atrial fibrillation; J44.9 Chronic obstructive pulmonary disease, unspecified; I27.2 Other secondary pulmonary hypertension; M81.0 Age-related osteoporosis without current pathological fracture; B96.20 Unspecified Escherichia coli [E. coli] as the cause of diseases classified elsewhere; E78.5 Hyperlipidemia, unspecified; Z91.81 History of falling; W01.0XXA Fall on same level from slipping, tripping and stumbling without subsequent striking against object, initial encounter; Y92.019 Unspecified place in single-family (private) house as the place of occurrence of the external cause
CPT/HCPCS: 36415; 71010; 76000; 80048; 80053; 81001; 82962; 84439; 84443; 85025; 85610; 85730; 86850; 86900; 86901; 87086; 87181; 93005; 93306; 94003; 94150; 94640; 94664; 94760; J1815; J2250; J2405; J7620